=== PATIENT | male | born 1960 | race Caucasian/White ===

== ENCOUNTER 2016-11-27 12:03 | Emergency (ER) | payer OTHER ==
[2016-11-27 12:15] VITALS: BP 223/85; PULSE 83; RESP 20; TEMP 98.3
--- NOTE | 2016-11-27 13:58 | US ---
EXAMINATION TYPE: US venous doppler duplex LE LT DATE OF EXAM: 11/27/2016 1:30 PM COMPARISON: None CLINICAL HISTORY: 56-year-old male with pain. Left leg pain and swelling. Hx of multiple PE's- Last one x 3 months ago. Not on any blood thinners. SIDE PERFORMED: Left TECHNIQUE: The lower extremity deep venous system is examined utilizing real time linear array sonog jordana with graded compression, doppler sonography and color-flow sonography. FINDINGS: VESSELS IMAGED: External Iliac Vein (EIV) Common Femoral Vein Deep Femoral Vein Greater Saphenous Vein * Femoral Vein Popliteal Vein Small Saphenous Vein * Proximal Calf Veins (* superficial vessels) Left Leg: Appears negative for DVT IMPRESSION: No evidence for DVT within the left lower extremity imaged from the groin to the upper calf.
--- NOTE | 2016-11-27 14:38 | ED ---
General Adult HPI - General Chief complaint: Extremity Injury, Lower Stated complaint: Swollen Left Leg Source: patient Mode of arrival: wheelchair Limitations: no limitations - History of Present Illness Initial comments: 56-year-old male with past medical history of hypertension, degenerative disc disease, and gastric ulcer presenting for evaluation of left lower extremity edema, erythema, and pain. He states that the symptoms have been present for the last 3 days and have progressively been worsening. Initially the redness was much more intense but he states it slowly been coming off. The edema is worse on the left compared to right and he states that his leg feels swollen. Denies any injury to the leg. The right leg is at baseline. Denies any associated chest pain, shortness of breath, fever, chills, nausea, vomiting. - Related Data Home Medications Medication Instructions Recorded Confirmed Ibuprofen [Motrin] 1,000 - 1,200 mg PO Q6HR PRN 11/27/16 11/27/16 Lisinopril-Hctz 20-25 mg 1 tab PO DAILY 11/27/16 11/27/16 [Zestoretic 20-25] Naproxen 500 mg PO Q12HR 11/27/16 11/27/16 Ranitidine HCl [Zantac] 150 mg PO BID 11/27/16 11/27/16 traMADol HCL [Ultram] 50 mg PO TID PRN 11/27/16 11/27/16 Review of Systems ROS Statement: Those systems with pertinent positive or pertinent negative responses have been documented in the HPI. ROS Other: All systems not noted in ROS Statement are negative. Constitutional: Denies: fever, chills, weakness, weight change Eyes: Denies: eye pain, eye discharge, vision change ENT: Denies: ear pain, throat pain Respiratory: Denies: cough, dyspnea, wheezes, hemoptysis Cardiovascular: Reports: edema (left greater than the right (lower extremity)). Denies: chest pain, palpitations Endocrine: Denies: fatigue Gastrointestinal: Denies: abdominal pain, nausea, vomiting Genitourinary: Denies: urgency, frequency, hematuria Skin: Reports: change in color, other (erythema ot LLE). Denies: rash, lesions Neurological: Denies: headache, weakness Psychiatric: Denies: anxiety, depression Hematological/Lymphatic: Denies: easy bleeding, easy bruising Past Medical History Past Medical History: Hypertension Additional Past Medical History / Comment(s): djd, stomach ulcer History of Any Multi-Drug Resistant Organisms: None Reported Additional Past Surgical History / Comment(s): head Past Psychological History: No Psychological Hx Reported Smoking Status: Current every day smoker Past Alcohol Use History: Occasional Past Drug Use History: None Reported General Exam Limitations: no limitations General appearance: alert, in no apparent distress Head exam: Present: atraumatic, normocephalic, normal inspection Eye exam: Present: normal appearance, PERRL, EOMI. Absent: scleral icterus, conjunctival injection, periorbital swelling ENT exam: Present: normal exam, mucous membranes moist Neck exam: Present: normal inspection. Absent: tenderness, meningismus, lymphadenopathy Respiratory exam: Present: normal lung sounds bilaterally. Absent: respiratory distress, wheezes, rales, rhonchi, stridor Cardiovascular Exam: Present: regular rate, normal rhythm, normal heart sounds. Absent: systolic murmur, diastolic murmur, rubs, gallop, clicks GI/Abdominal exam: Present: soft, normal bowel sounds. Absent: distended, tenderness, guarding, rebound, rigid Rectal exam: Present: deferred Extremities exam: Present: normal inspection, full ROM, normal capillary refill. Absent: tenderness, pedal edema, joint swelling, calf tenderness Back exam: Present: normal inspection Neurological exam: Present: alert, oriented X3, CN II-XII intact Psychiatric exam: Present: normal affect, normal mood Skin exam: Present: warm, dry, intact, other (erythema to LLE without overlying warmth or well demarkated sevence.). Absent: rash Course Vital Signs 11/27/16 12:07 Temperature 98.3 F Pulse Rate 83 Respiratory 20 Rate Blood Pressure 223/85 O2 Sat by Pulse 97 Oximetry Medical Decision Making - Medical Decision Making 56-year-old male presenting for evaluation of left lower extremity swelling and erythema for the past few days. On physical exam there is swelling and erythema to the LLE distal to the knee. It is circumferential and goes two th[address] the way up to the knee. He denies any other associated symptoms of chest pain, shortness breath, fevers, chills, nausea, vomiting. There is a small lesion to the left anterolateral lower extremity that he states was initially there before all this began, likely indicating cellulitis. However there does not appear to be an opening in the skin at this location and concern for DVT is still present. Lower extremity duplex reveals no signs of DVT. However the patient became weary of waiting for results. He was informed that he would be updated on the status of the ultrasound as soon as it was completed. He stated this was taking too long and that he would want to leave. As appropriate papers were being put together to have the patient discharged the patient left without further treatment or evaluation and left without completion of services. Given that this is likely a cellulitis will print out a prescription for antibiotics and sent to the patient. Disposition Clinical Impression: Cellulitis and abscess of left leg Disposition: Left Against Medical Advice Condition: Stable Instructions: Cellulitis (ED) Referrals: Fritz Brizuela DO [Primary Care Provider] - 1-2 days Time of Disposition: 16:24
== END 2016-11-27 14:45 | disposition left against medical advice (07) ==
LOC: EC 12:03
DX: L03.116 Cellulitis of left lower limb (principal); I10 Essential (primary) hypertension; F17.200 Nicotine dependence, unspecified, uncomplicated; Z53.29 Procedure and treatment not carried out because of patient's decision for other reasons; Z79.899 Other long term (current) drug therapy
CPT/HCPCS: 99283

== ENCOUNTER → 2017-01-26 | Outpatient (CLI) | payer OTHER | END | disposition home or self-care (01) | LOC: LABPAT 11:18 | PROVIDERS: ATTEND Urology | DX: Z01.810 Encounter for preprocedural cardiovascular examination (principal); I10 Essential (primary) hypertension | CPT/HCPCS: 93005 ==

== ENCOUNTER 2017-01-29 12:53 | Day surgery (SDC) | payer OTHER ==
[2017-01-26 17:39] VITALS: BMI 44.3
[~2017-01-29 12:53] MED LIST: DEXAMETHASONE SOD PHOSPHATE 10 MG/ML 1 ML VIAL IV ONE; LACTATED RINGERS 1,000 ML IV SCH; ONDANSETRON 4 MG/2 ML VIAL IVP ONE; SCOPOLAMINE 1.5MG/72HR PATCH TRANSDERM ONE; ceFAZolin 2 GM in SODIUM CHLORIDE 0.9% 100 ML IVPB ONE; fentaNYL (PF) 50 MCG/ML 2 ML AMP IV PRN
--- NOTE | 2017-01-29 12:55 | XR ---
EXAMINATION TYPE: XR KUB DATE OF EXAM: 01/29/2017 HISTORY: Pain Comparison: March 15, 2010 Single KUB is submitted for interpretation. Findings: Right renal calculi: None Visualized. Right ureteral calculi: None Visualized. Left renal calculi: There is a calculus noted overlying the lower pole of the left kidney measuring 10.5 mm craniocaudal dimension by 5.7 mm transverse dimension. Left ureteral calculi: I cannot exclude a calcification overlying the left L4 transverse process yamilet suring 4.4 mm. Pelvic calcifications: None Visualized. Bowel gas pattern is unremarkable. No free air. No mass effects. IMPRESSION: 1. Left renal calculus is noted. 2. I cannot exclude the possibility of a calculus at the approximate the left L4 transverse process l evel.
[2017-01-29] MEDS ORDERED: LIDOCAINE 1% 20 ML VIAL (10MG/ML) FOR IV START INTRADERMA ONE (13:11)
[2017-01-29] MEDS: ONDANSETRON 4 MG/2 ML VIAL IVP ONE ×2 (13:15→18:07)
[2017-01-29] MEDS ORDERED: MIDAZOLAM 2 MG/2 ML VIAL ONE (14:14)
[2017-01-29] MEDS ORDERED: LIDOCAINE 1% INJ 10MG/ML (20 ML MDV) ONE (14:14)
[2017-01-29] MEDS ORDERED: KETOROLAC 30 MG/ML 1 ML VIAL ONE (14:14)
[2017-01-29] MEDS ORDERED: SUCCINYLCHOLINE CHLORIDE VIAL 200 MG/10 ML VIAL IV ONE (14:14)
[2017-01-29] MEDS ORDERED: fentaNYL (PF) 50 MCG/ML 2 ML AMP ONE (14:14)
[2017-01-29] MEDS ORDERED: PROPOFOL 10 MG/ML 20 ML VIAL IV ONE (14:14)
[2017-01-29] MEDS ORDERED: IOHEXOL 350 MG/ML 50ML BOTTLE MISCELLANE ONE (14:44)
[2017-01-29] MEDS ORDERED: LACTATED RINGERS 1,000 ML IV ONE ×2 (15:17→18:12)
--- NOTE | 2017-01-29 15:52 | P.OP ---
Date of Procedure: 01/29/17 Preoperative Diagnosis: Left Renal Calculus Postoperative Diagnosis: Same Procedure(s) Performed: Cystoscopy, bilateral retrograde pyelogram, right ureteroscopy, left ureteroscopy with Holmium laser lithotripsy, left ureteral stent insertion Implants: Anesthesia: HOMEROA Surgeon: Finn Yuen Estimated Blood Loss (ml): 10 IV fluids (ml): 900 Pathology: none sent Condition: stable Disposition: PACU Indications for Procedure: The patient is a 56-year-old white male recently hospitalized with a 5 mm left proximal ureteral calculus. The calculus was seen on computed tomography scan but not on a plain radiograph. He reports persistent pain and will thus loss undergo ureteroscopy with laser lithotripsy. Of interest, his pain is predominantly right-sided. Operative Findings: Left renal calculus, fragmented completely. There is no evidence of urolithiasis or obstruction on the right. Description of Procedure: The patient was taken to the operating room and placed in the dorsolithotomy position, with legs supported in Graham stirrups. The external genitalia was prepped and draped sterilely. The 30 lens was used to introduce the 19-St Lucian Stortz cystoscopic sheath through the urethra and into the bladder under direct vision. The prostatic urethra showed evidence of mild lateral lobe enlargement. The bladder was examined in its entirety. Both ureteral orifices were normal anatomic location and configuration, and clear urine effluxed from both. No tumors or foreign bodies were seen. Using an 8-St Lucian cone-tipped catheter, bilateral retrograde pyelograms were performed in the standard fashion. The course of each ureter appeared normal, without obstruction or filling defect. The renal pelvis on the left appeared normal. Some fullness of the right renal pelvis was noted, though after the system drained somewhat there was no evidence of right hydronephrosis. A 0.038 inch Glidewire was passed through the cystoscope. The left ureteral orifice was cannulated, and the Glidewire was advanced up to the left renal pelvis. An 11/13-St Lucian ureteral access catheter was passed over the wire, up to the proximal ureter. The Olympus mini flexible ureteroscope was passed through the ureteral access catheter sheath and up to the left renal pelvis. The calculus was identified within the renal pelvis. The 200 micron Holmium laser probe was passed through the ureteroscope, and lithotripsy was performed. Utilizing a dusting technique, the calculus was fragmented completely. Each calyx was examined, and no additional calculi were seen. The ureteroscope was slowly withdrawn under direct vision. There was no evidence of ureteral trauma. The cystoscope was again passed into the bladder, and the Glidewire was advanced up to the right renal pelvis. The cystoscope was removed, and the Olympus mini flexible ureteroscope was passed over the wire, up to the right renal pelvis. Each calyx was examined, and no calculi were seen within the right intrarenal collecting system. The ureteroscope was slowly withdrawn, and no ureteral abnormalities were noted. After removing the ureteroscope, the cystoscope was passed into the bladder under direct vision, and the Glidewire was advanced up to the left renal pelvis. A 26 cm, 4.8-St Lucian double-J ureteral stent was placed over the wire. Proper stent positioning was verified fluoroscopically and endoscopically. The bladder was emptied and the cystoscope removed. The patient tolerated the procedure well and was taken to the recovery room in stable condition.
--- NOTE | 2017-01-29 16:00 | FL ---
EXAMINATION TYPE: FL urography retrograde DATE OF EXAM: 01/29/2017 COMPARISON: NONE HISTORY: LEFT SIDE URETERAL STONES TECHNIQUE: Fluoroscopy. 2 MIN 33 SEC FLUORO IMPRESSION: As Above.
[2017-01-29] MEDS ORDERED: HYDROmorphone 1 MG/ML 1 ML SYRINGE IVP ONE ×4 (16:07→16:58)
[2017-01-29 16:10] VITALS: TEMP 97.2
[2017-01-29] MEDS ORDERED: hydrALAZINE HCL 20 MG/ML 1 ML VIAL IVP ONE ×2 (16:30→16:41)
[2017-01-29 17:08] VITALS: RESP 16
[2017-01-29] MEDS ORDERED: HYDROcodone/APAP 5-325MG 1 EACH TAB PO ONE (17:30)
[2017-01-29 18:55] VITALS: BP 190/98; PULSE 82
== END 2017-01-29 19:02 | disposition home or self-care (01) ==
LOC: OR 12:53
PROVIDERS: ATTEND Urology
DX: N13.2 Hydronephrosis with renal and ureteral calculous obstruction (principal); I10 Essential (primary) hypertension; E66.9 Obesity, unspecified; N19 Unspecified kidney failure; K21.9 Gastro-esophageal reflux disease without esophagitis; E78.5 Hyperlipidemia, unspecified; J45.909 Unspecified asthma, uncomplicated; Z79.891 Long term (current) use of opiate analgesic; Z79.899 Other long term (current) drug therapy; Z88.6 Allergy status to analgesic agent; F17.200 Nicotine dependence, unspecified, uncomplicated
CPT/HCPCS: 74000; 74420; 52356; C2625; C1758; C1769; J2250; J0330; J0360; J1100; J0690; J2405; J2001; J3010; J1885; J1170; J2704; Q9967

== ENCOUNTER 2017-01-29 22:18 | Emergency (ER) | payer OTHER ==
[2017-01-29] MEDS ORDERED: METOCLOPRAMIDE 5 MG/ML 2 ML VIAL IVP STA (22:46)
[2017-01-29] MEDS ORDERED: SODIUM CHLORIDE 0.9% 500 ML IV STA (22:46)
[2017-01-29] MEDS ORDERED: HYDROmorphone 1 MG/ML 1 ML SYRINGE IVP STA ×2 (22:47→23:56)
--- NOTE | 2017-01-29 22:49 | ED ---
General Adult HPI - General Chief complaint: Nausea/Vomiting/Diarrhea Stated complaint: vomiting post surgery Time Seen by Provider: 01/29/17 22:36 Source: patient, EMS, RN notes reviewed Mode of arrival: EMS Limitations: no limitations - History of Present Illness Initial comments: Patient is a pleasant 56-year-old male presenting to the emergency department with nausea vomiting. Patient did have laser breakup of kidney stone with stent placement done earlier today. Patient has been vomiting since that time. Patient believes vomiting is causing abdominal and chest discomfort. Patient does have dysuria and hematuria. Patient has been recently constipated. Patient has been sweaty. - Related Data Home Medications Medication Instructions Recorded Confirmed Ranitidine HCl [Zantac] 150 mg PO BID 11/27/16 01/29/17 Ondansetron [Zofran] 8 mg SL Q8HR PRN 01/26/17 01/29/17 Tamsulosin [Flomax] 0.4 mg PO HS 01/26/17 01/29/17 cloNIDine HCL [Catapres] 0.1 mg PO TID 01/26/17 01/29/17 Hydrocodone/Acetaminophen [Collison 1 - 2 tab PO Q4HR PRN 01/29/17 01/29/17 5-325] diphenhydrAMINE [Benadryl] 25 mg PO BID PRN 01/29/17 01/29/17 Allergies Allergy/AdvReac Type Severity Reaction Status Date / Time aspirin Allergy SEIZURE Verified 01/29/17 22:56 Review of Systems ROS Statement: Those systems with pertinent positive or pertinent negative responses have been documented in the HPI. ROS Other: All systems not noted in ROS Statement are negative. Constitutional: Denies: fever Eyes: Denies: eye pain ENT: Denies: ear pain Respiratory: Denies: cough Cardiovascular: Reports: chest pain Endocrine: Denies: fatigue Gastrointestinal: Reports: abdominal pain, nausea, vomiting Genitourinary: Reports: dysuria, hematuria Musculoskeletal: Denies: back pain Skin: Denies: rash Neurological: Denies: weakness Past Medical History Past Medical History: Hypertension Additional Past Medical History / Comment(s): djd, stomach ulcer, kidney stone. History of Any Multi-Drug Resistant Organisms: None Reported Additional Past Surgical History / Comment(s): head Past Psychological History: No Psychological Hx Reported Smoking Status: Current every day smoker General Exam Limitations: no limitations General appearance: alert, in no apparent distress Head exam: Present: atraumatic Eye exam: Present: normal appearance, PERRL ENT exam: Present: normal oropharynx Neck exam: Present: normal inspection Respiratory exam: Present: normal lung sounds bilaterally Cardiovascular Exam: Present: regular rate, normal rhythm Expanded Peripheral pulses: 2+: Dorsalis Pedis (R), Dorsalis Pedis (L) GI/Abdominal exam: Present: soft, tenderness (Moderate diffuse tenderness), normal bowel sounds. Absent: rigid exam: Present: normal inspection. Absent: testicular tenderness Extremities exam: Present: normal inspection Neurological exam: Present: alert Psychiatric exam: Present: normal affect, normal mood Skin exam: Absent: rash Course Vital Signs 01/29/17 01/30/17 22:21 00:33 Pulse Rate 84 82 Respiratory 20 16 Rate Blood Pressure 167/96 180/94 O2 Sat by Pulse 98 95 Oximetry EKG Findings - EKG Comments: EKG Findings:: Normal sinus rhythm at 75. LA 148. QRS 88. QT 400. QTc 446. Normal axis. Normal QRS. Normal ST-T. Medical Decision Making - Medical Decision Making Patient again reexamined and resting comfortably in bed. Patient states symptoms are mild and did not want any pain medication. Patient updated on results. Case was discussed in detail with Dr. Calderon, covering for Dr. Cespedes. He does recommend discharge and follow-up tomorrow. No need for antibiotic's at this time. - Lab Data Result diagrams: 01/29/17 22:50 01/29/17 22:50 Lab Results 01/29/17 01/29/17 01/29/17 Range/Units 22:50 22:50 22:50 WBC 18.7 H (3.8-10.6) k/uL RBC 4.65 (4.30-5.90) m/uL Hgb 15.7 (13.0-17.5) gm/dL Hct 47.1 (39.0-53.0) % MCV 101.3 H (80.0-100.0) fL MCH 33.7 (25.0-35.0) pg MCHC 33.3 (31.0-37.0) g/dL RDW 15.3 (11.5-15.5) % Plt Count 295 (150-450) k/uL Neutrophils % 89 % Lymphocytes % 4 % Monocytes % 5 % Eosinophils % 1 % Basophils % 0 % Neutrophils # 16.7 H (1.3-7.7) k/uL Lymphocytes # 0.8 L (1.0-4.8) k/uL Monocytes # 0.9 (0-1.0) k/uL Eosinophils # 0.2 (0-0.7) k/uL Basophils # 0.0 (0-0.2) k/uL Macrocytosis Slight Sodium 141 (137-145) mmol/L Potassium 4.0 (3.5-5.1) mmol/L Chloride 104 (98-107) mmol/L Carbon Dioxide 22 (22-30) mmol/L Anion Gap 15 mmol/L BUN 10 (9-20) mg/dL Creatinine 1.05 (0.66-1.25) mg/dL Est GFR (MDRD) Af Amer >60 (>60 ml/min/1.73 sqM) Est GFR (MDRD) Non-Af >60 (>60 ml/min/1.73 sqM) Glucose 166 H (74-99) mg/dL Calcium 9.0 (8.4-10.2) mg/dL Total Bilirubin 0.7 (0.2-1.3) mg/dL AST 66 H (17-59) U/L ALT 42 (21-72) U/L Alkaline Phosphatase 84 (38-126) U/L Total Creatine Kinase 66 (55-170) U/L CK-MB (CK-2) 1.3 (0.0-2.4) ng/mL CK-MB (CK-2) Rel Index 2.0 Troponin I <0.012 (0.000-0.034) ng/mL Total Protein 7.0 (6.3-8.2) g/dL Albumin 4.2 (3.5-5.0) g/dL Amylase 37 (30-110) U/L Lipase 42 (23-300) U/L Urine Color Urine Appearance (Clear) Urine pH (5.0-8.0) Ur Specific [place] (1.001-1.035) Urine Protein (Negative) Urine Glucose (UA) (Negative) Urine Ketones (Negative) Urine Blood (Negative) Urine Nitrite (Negative) Urine Bilirubin (Negative) Urine Urobilinogen (<2.0) mg/dL Ur Leukocyte Esterase (Negative) Urine RBC (0-5) /hpf Urine WBC (0-5) /hpf 01/29/17 Range/Units 23:00 WBC (3.8-10.6) k/uL RBC (4.30-5.90) m/uL Hgb (13.0-17.5) gm/dL Hct (39.0-53.0) % MCV (80.0-100.0) fL MCH (25.0-35.0) pg MCHC (31.0-37.0) g/dL RDW (11.5-15.5) % Plt Count (150-450) k/uL Neutrophils % % Lymphocytes % % Monocytes % % Eosinophils % % Basophils % % Neutrophils # (1.3-7.7) k/uL Lymphocytes # (1.0-4.8) k/uL Monocytes # (0-1.0) k/uL Eosinophils # (0-0.7) k/uL Basophils # (0-0.2) k/uL Macrocytosis Sodium (137-145) mmol/L Potassium (3.5-5.1) mmol/L Chloride (98-107) mmol/L Carbon Dioxide (22-30) mmol/L Anion Gap mmol/L BUN (9-20) mg/dL Creatinine (0.66-1.25) mg/dL Est GFR (MDRD) Af Amer (>60 ml/min/1.73 sqM) Est GFR (MDRD) Non-Af (>60 ml/min/1.73 sqM) Glucose (74-99) mg/dL Calcium (8.4-10.2) mg/dL Total Bilirubin (0.2-1.3) mg/dL AST (17-59) U/L ALT (21-72) U/L Alkaline Phosphatase (38-126) U/L Total Creatine Kinase (55-170) U/L CK-MB (CK-2) (0.0-2.4) ng/mL CK-MB (CK-2) Rel Index Troponin I (0.000-0.034) ng/mL Total Protein (6.3-8.2) g/dL Albumin (3.5-5.0) g/dL Amylase (30-110) U/L Lipase (23-300) U/L Urine Color Dark Red Urine Appearance Cloudy (Clear) Urine pH 7.5 (5.0-8.0) Ur Specific [place] 1.015 (1.001-1.035) Urine Protein 2+ H (Negative) Urine Glucose (UA) 2+ H (Negative) Urine Ketones Trace H (Negative) Urine Blood Large H (Negative) Urine Nitrite Negative (Negative) Urine Bilirubin Negative (Negative) Urine Urobilinogen <2.0 (<2.0) mg/dL Ur Leukocyte Esterase Small H (Negative) Urine RBC >182 H (0-5) /hpf Urine WBC >182 H (0-5) /hpf - Radiology Data Radiology results: image reviewed (Chest x-ray shows questionable mild congestion. KUB shows left ureteral stent.) Disposition Clinical Impression: Vomiting, Abdominal pain, Chest pain Disposition: HOME SELF-CARE Condition: Stable Instructions: Abdominal Pain (ED), Acute Nausea and Vomiting (ED) Additional Instructions: Please call Dr. Cespedes in the morning for further evaluation and plan. Please also follow-up Dr. Reynolds in the next day or 2. Return for chest pain , increased pain, fevers, uncontrolled vomiting, worsening symptoms or any other concerns. Referrals: Endy Reynolds MD [Primary Care Provider] - 1-2 days Finn Yuen MD [STAFF PHYSICIAN] - 1-2 days Time of Disposition: 01:05
[2017-01-29 23:03] LABS: Basophils % (A) 0 %; CH 34.5; CHCM 34.2; Eosinophils # (A) 0.2 k/uL (0-0.7); Eosinophils % (A) 1 %; HCT 47.1 % (39.0-53.0); HGB 15.7 gm/dL (13.0-17.5); Luc # (Auto) 0.15; Luc % (Auto) 1; Lymphocytes # (A) 0.8 k/uL (1.0-4.8); Lymphocytes % (A) 4 %; MCH 33.7 pg (25.0-35.0); MCHC 33.3 g/dL (31.0-37.0); MCV 101.3 fL (80.0-100.0); Macrocytosis Slight; Mean Platelet Volume 7.6; Monocytes # (A) 0.9 k/uL (0-1.0); Monocytes % (A) 5 %; Neutrophils # (A) 16.7 k/uL (1.3-7.7); Neutrophils % (A) 89 %; RBC 4.65 m/uL (4.30-5.90); RDW 15.3 % (11.5-15.5); WBC 18.7 k/uL (3.8-10.6); WBC (Perox) 17.45
[2017-01-29 23:13] LABS: ALT 42 U/L (21-72); AST 66 U/L (17-59); Alkaline Phosphatase 84 U/L (38-126); Amylase 37 U/L (30-110); Anion Gap 15 mmol/L; Blood Urea Nitrogen 10 mg/dL (9-20); Carbon Dioxide 22 mmol/L (22-30); Chloride 104 mmol/L (98-107); Glucose 166 mg/dL (74-99); Non-African American GFR(MDRD) >60 (>60 ml/min/1.73 sqM); Sodium 141 mmol/L (137-145); Total Bilirubin 0.7 mg/dL (0.2-1.3)
[2017-01-29 23:23] LABS: Creatine Kinase 66 U/L (55-170)
[2017-01-29 23:36] LABS: Creatine Kinase MB 1.3 ng/mL (0.0-2.4); Troponin I <0.012 ng/mL (0.000-0.034)
[2017-01-29] MEDS ORDERED: ONDANSETRON 4 MG/2 ML VIAL IVP STA (23:56)
--- NOTE | 2017-01-29 23:58 | XR ---
Exam: XR CXR 2 VIEWS History: Pain. Comparison: None provided. Technique: 2 views. Findings: No focal consolidation or significant effusion. The heart shadow is top normal in transverse dimension. There is mild prominence of pulmonary vasculature. This may be accentuated by technique. Represent mild volume overload. Impression: Question mild pulmonary overload/congestion. No definite focal consolidation or significant effusion.
--- NOTE | 2017-01-30 00:02 | XR ---
Exam: XR KUB History: Vomiting and pain after lithotripsy stent placement. Comparison: 01/29/17 at 12:32. Technique: 2 views. Findings: Previously noted left renal calculus is not appreciated on the current examination. Left nephroureteral stent. There is density in the right renal collecting system which suggests moderate right hydronephrosis. Contrast material is seen in the urinary bladder. There are a few prominent gas-filled loops of bowel without rajani dilatation. May represent minimal ileus. Impression: Left nephroureteral stent as noted above.
[2017-01-30 00:03] LABS: Appearance,Urine Cloudy (Clear); Bilirubin,Urine Negative (Negative); Glucose,Urine (UA) 2+ (Negative); Ketones,Urine Trace (Negative); Leukocyte Esterase,Urine Small (Negative); Nitrite,Urine Negative (Negative); PH, Urine 7.5 (5.0-8.0); Particle Count 4803; Protein,Urine 2+ (Negative); RBC,Urine >182 /hpf (0-5); Specific Gravity,Urine 1.015 (1.001-1.035); UA Billing (MACRO vs. MICRO) MICRO; Urobilinogen,Urine <2.0 mg/dL (<2.0); WBC,Urine >182 /hpf (0-5)
[2017-01-30 00:40] VITALS: BP 180/94; PULSE 82; RESP 16
[2017-01-30] MEDS ORDERED: HYDROcodone/APAP 5-325MG 1 EACH TAB PO STA (01:07)
== END 2017-01-30 01:34 | disposition home or self-care (01) ==
LOC: EC 22:18
DX: R11.2 Nausea with vomiting, unspecified (principal); R10.9 Unspecified abdominal pain; R07.9 Chest pain, unspecified; R30.0 Dysuria; R31.9 Hematuria, unspecified; K59.00 Constipation, unspecified; I10 Essential (primary) hypertension; F17.200 Nicotine dependence, unspecified, uncomplicated; Z87.442 Personal history of urinary calculi; Z87.19 Personal history of other diseases of the digestive system; Z79.899 Other long term (current) drug therapy; Z88.6 Allergy status to analgesic agent; Z96.0 Presence of urogenital implants
CPT/HCPCS: 99285; 96374; 96375 ×2; 96361 ×3; 36415; 93005; 80053; 82150; 82550; 82553; 83690; 84484; 85025; 81001; 71020; 74000; J2765; J2405; J1170

== ENCOUNTER 2017-02-27 09:57 | Inpatient (IN) | payer OTHER ==
[2017-02-27] MEDS ORDERED: hydrALAZINE HCL 20 MG/ML 1 ML VIAL IVP STA (11:00)
[2017-02-27 11:41] LABS: Basophils % (A) 0 %; CH 34.7; CHCM 34.9; Eosinophils # (A) 0.1 k/uL (0-0.7); Eosinophils % (A) 1 %; HCT 49.2 % (39.0-53.0); HDW 2.51; HGB 16.9 gm/dL (13.0-17.5); Luc # (Auto) 0.17; Luc % (Auto) 1; Lymphocytes # (A) 1.5 k/uL (1.0-4.8); Lymphocytes % (A) 12 %; MCH 34.3 pg (25.0-35.0); MCHC 34.4 g/dL (31.0-37.0); MCV 99.8 fL (80.0-100.0); Mean Platelet Volume 7.7; Monocytes # (A) 0.9 k/uL (0-1.0); Monocytes % (A) 7 %; Neutrophils # (A) 10.1 k/uL (1.3-7.7); Neutrophils % (A) 79 %; RBC 4.93 m/uL (4.30-5.90); RDW 13.9 % (11.5-15.5); WBC 12.8 k/uL (3.8-10.6); WBC (Perox) 12.81
[2017-02-27 11:51] LABS: ALT 50 U/L (21-72); AST 41 U/L (17-59); Alkaline Phosphatase 88 U/L (38-126); Anion Gap 15 mmol/L; Blood Urea Nitrogen 14 mg/dL (9-20); Calcium 9.7 mg/dL (8.4-10.2); Carbon Dioxide 26 mmol/L (22-30); Chloride 102 mmol/L (98-107); Glucose 114 mg/dL (74-99); Non-African American GFR(MDRD) >60 (>60 ml/min/1.73 sqM); Potassium 3.5 mmol/L (3.5-5.1); Sodium 143 mmol/L (137-145); Total Bilirubin 0.9 mg/dL (0.2-1.3); Total Protein 7.2 g/dL (6.3-8.2)
--- NOTE | 2017-02-27 11:58 | XR ---
2 view abdomen HISTORY: Abdominal pain, left-sided kidney stone with stent 2 views of the abdomen on 4 images are correlated to prior abdomen 01/29/2017 Left double-J ureteral stent is in place. Contrast is no longer present within the bladder and right collecting system. Renal calcification is not identified with certainty. Exam may be limited by body habitus. There are air-filled loops of small bowel without bowel distention. No evident pneumoperiton eum. Lung bases are clear. IMPRESSION: There may be an underlying ileus. Double-J left ureteral stent remains in place.
[2017-02-27] MEDS: ONDANSETRON 4 MG/2 ML VIAL IVP PRN ×2 (12:30→18:32)
[2017-02-27] MEDS: HYDROmorphone 1 MG/ML 1 ML SYRINGE IVP PRN ×4 (12:31→21:25)
[2017-02-27] MEDS: FAMOTIDINE 20 MG/2 ML VIAL IV SCH ×2 (12:31→20:20)
[2017-02-27] MEDS: SODIUM CHLORIDE 0.9% 1,000 ML IV SCH ×2 (12:32→23:41)
[2017-02-27 13:30] LABS: Appearance,Urine Cloudy (Clear); Bacteria,Urine Rare /hpf; Bilirubin,Urine 1+ (Negative); Glucose,Urine (UA) Trace (Negative); Ketones,Urine 2+ (Negative); Leukocyte Esterase,Urine Large (Negative); Mucus,Urine Many /hpf; Nitrite,Urine Negative (Negative); Particle Count 12955; Protein,Urine 2+ (Negative); RBC,Urine >182 /hpf (0-5); Squamous Epithelial Cell,Urine 2 /hpf (0-4); UA Billing (MACRO vs. MICRO) MICRO; WBC,Urine 63 /hpf (0-5)
--- NOTE | 2017-02-27 17:52 | P.GSCN ---
History of Present Illness Consult date: 02/27/17 Reason for Consult: Kidney Stone Requesting physician: Endy Reynolds History of present illness: The patient is a 56-year-old white male hospitalized at [facility] last month with abdominal pain, which was predominantly right-sided. He scan showed a 5 mm left proximal ureteral calculus. He experienced persistent pain, and thus underwent left ureteroscopy with laser lithotripsy on 2016. At that time, the calculus was noted to have refluxed back into the kidney. The calculus was fragmented completely, and a ureteral stent was left in place. Right ureteroscopy was also performed, showing no evidence of urolithiasis on that side. He noticed an appointment in the office to undergo removal of his stent. He is now admitted with diffuse lower abdominal pain and "testicular swelling". Review of Systems - Constitutional Denies fever - Gastrointestinal Reports abdominal pain - Genitourinary Reports hematuria Past Medical History Past Medical History: Hypertension Additional Past Medical History / Comment(s): djd, stomach ulcer, kidney stone. urinary stent hiatal herina History of Any Multi-Drug Resistant Organisms: None Reported Additional Past Surgical History / Comment(s): head. Ankle sx Past Psychological History: No Psychological Hx Reported Smoking Status: Current every day smoker Past Alcohol Use History: Occasional Past Drug Use History: None Reported Medications and Allergies Home Medications Medication Instructions Recorded Confirmed Type Ranitidine HCl [Zantac] 150 mg PO BID 11/27/16 02/27/17 History Ondansetron [Zofran] 8 mg SL Q8HR PRN 01/26/17 02/27/17 History Tamsulosin [Flomax] 0.4 mg PO HS 01/26/17 02/27/17 History cloNIDine HCL [Catapres] 0.1 mg PO TID 01/26/17 02/27/17 History Hydrocodone/Acetaminophen [[place] 1 tab PO Q4HR PRN 01/29/17 02/27/17 History 5-325] diphenhydrAMINE [Benadryl] 25 mg PO BID PRN 01/29/17 02/27/17 History Docusate 250mg 250 mg PO BID 02/27/17 02/27/17 History Polyethylene Glycol 3350 [Miralax] 17 gm PO DAILY PRN 02/27/17 02/27/17 History Allergies Allergy/AdvReac Type Severity Reaction Status Date / Time aspirin Allergy SEIZURE Verified 02/27/17 10:35 Surgical - Exam Vital Signs Temp Pulse Resp BP Pulse Ox 97.4 F L 88 18 169/115 99 02/27/17 10:39 02/27/17 10:39 02/27/17 10:39 02/27/17 10:39 02/27/17 10:39 - General well developed, well nourished, no distress - Respiratory normal respiratory effort - Abdomen Abdomen: soft, tender (mild lower abdominal tenderness to palpation), no guarding, no rigid, no rebound, no distended - Genitourinary normal penis with no external lesions, testicles non-tender - Psychiatric oriented to time, oriented to person, oriented to place, speech is normal, memory intact Results - Labs 02/27/17 11:17 02/27/17 11:17 Abnormal Lab Results - Last 24 Hours (Table) 02/27/17 02/27/17 02/27/17 Range/Units 11:17 11:17 12:20 WBC 12.8 H (3.8-10.6) k/uL Neutrophils # 10.1 H (1.3-7.7) k/uL Glucose 114 H (74-99) mg/dL Urine Protein 2+ H (Negative) Urine Glucose (UA) Trace H (Negative) Urine Ketones 2+ H (Negative) Urine Blood Large H (Negative) Urine Bilirubin 1+ H (Negative) Ur Leukocyte Esterase Large H (Negative) Urine RBC >182 H (0-5) /hpf Urine WBC 63 H (0-5) /hpf Urine Bacteria Rare H (None) /hpf Urine Mucus Many H (None) /hpf Microbiology - Last 24 Hours (Table) 02/27/17 12:20 Urine Culture - Preliminary Urine,Clean Catch Diabetes panel 02/27/17 Range/Units 11:17 Sodium 143 (137-145) mmol/L Potassium 3.5 (3.5-5.1) mmol/L Chloride 102 (98-107) mmol/L Carbon Dioxide 26 (22-30) mmol/L BUN 14 (9-20) mg/dL Creatinine 0.76 (0.66-1.25) mg/dL Glucose 114 H (74-99) mg/dL Calcium 9.7 (8.4-10.2) mg/dL AST 41 (17-59) U/L ALT 50 (21-72) U/L Alkaline Phosphatase 88 (38-126) U/L Total Protein 7.2 (6.3-8.2) g/dL Albumin 4.4 (3.5-5.0) g/dL Calcium panel 02/27/17 Range/Units 11:17 Calcium 9.7 (8.4-10.2) mg/dL Albumin 4.4 (3.5-5.0) g/dL Pituitary panel 02/27/17 Range/Units 11:17 Sodium 143 (137-145) mmol/L Potassium 3.5 (3.5-5.1) mmol/L Chloride 102 (98-107) mmol/L Carbon Dioxide 26 (22-30) mmol/L BUN 14 (9-20) mg/dL Creatinine 0.76 (0.66-1.25) mg/dL Glucose 114 H (74-99) mg/dL Calcium 9.7 (8.4-10.2) mg/dL Adrenal panel 02/27/17 Range/Units 11:17 Sodium 143 (137-145) mmol/L Potassium 3.5 (3.5-5.1) mmol/L Chloride 102 (98-107) mmol/L Carbon Dioxide 26 (22-30) mmol/L BUN 14 (9-20) mg/dL Creatinine 0.76 (0.66-1.25) mg/dL Glucose 114 H (74-99) mg/dL Calcium 9.7 (8.4-10.2) mg/dL Total Bilirubin 0.9 (0.2-1.3) mg/dL AST 41 (17-59) U/L ALT 50 (21-72) U/L Alkaline Phosphatase 88 (38-126) U/L Total Protein 7.2 (6.3-8.2) g/dL Albumin 4.4 (3.5-5.0) g/dL Assessment and Plan (1) Renal calculus Status: Acute Plan: Mr. Holden is admitted with lower abdominal pain" and scrotal swelling". On examination, the testes are palpably normal. The lower abdominal tenderness may be related to his stent, though this cannot be confirmed with certainty. Urinalysis is suggestive of possible infection, though this can be seen in the presence of a ureteral stent. He is scheduled to undergo removal of the stent in the office on 03/02/2017. A urine culture is pending. In the meantime, I have prescribed Levaquin. Given that his pain was predominantly right sided upon presentation, and has persisted despite successful removal of his ureteral calculus, I suspect a non-urologic etiology of his symptoms. Time with Patient: Less than 30
[2017-02-27] MEDS: LEVOFLOXACIN 500MG-D5W PMX 500 MG in DEXTROSE/WATER 1 100ML.BAG IVPB SCH (18:32)
[2017-02-27] MEDS: HEPARIN SODIUM,PORCINE 5,000 UNIT/ML 1 ML VIAL SQ SCH (20:20)
[2017-02-28] MEDS: HYDROmorphone 1 MG/ML 1 ML SYRINGE IVP PRN ×6 (01:34→22:22)
[2017-02-28] MEDS: ONDANSETRON 4 MG/2 ML VIAL IVP PRN ×3 (01:35→15:10)
[2017-02-28] MEDS: SODIUM CHLORIDE 0.9% 1,000 ML IV SCH ×2 (05:34→15:10)
[2017-02-28] MEDS: FAMOTIDINE 20 MG/2 ML VIAL IV SCH ×2 (08:09→20:06)
[2017-02-28] MEDS: HEPARIN SODIUM,PORCINE 5,000 UNIT/ML 1 ML VIAL SQ SCH ×2 (08:09→20:05)
--- NOTE | 2017-02-28 09:21 | HP ---
CHIEF COMPLAINT: A 56-year-old white male who presents with abdominal pain, significant right-sided severe pain and large amounts of hematuria, status post left ureteroscopy with left laser lithotripsy on 01/29/2017. He has been having severe nausea and vomiting, unable to keep any food down at which time he was admitted to the hospital due to significant abdominal pain, unable to take care of his pain, 10 out of 10 pain. Testicular swelling along with gross hematuria. Fourteen point review of systems negative for as mentioned in the HPI. PAST MEDICAL HISTORY: Hypertension, DJD, stomach ulcer, kidney stone, urinary stent, hiatal hernia. MEDICATIONS: 1. Flomax. 2. Zofran. 3. Zantac. 4. Catapres. 5. [place]. 6. Benadryl. 7. Colace. 8. MiraLAX. ALLERGIES: ASPIRIN. VITAL SIGNS: Blood pressure is 160s over 100s. O2 of 99% on room. Respiratory rate is 16 to 18. Pulse 80s to 90s. BMI is over 40. ABDOMEN: Tender to palpation diffuse in the lower quadrants. Mild guarding right lower quadrant. RESPIRATORY: Clear. CARDIOVASCULAR: S1 and S2. PSYCH: Anxious, nervous, rapid heart, rapid speech. VASCULAR: Normal dorsalis pedis, posterior tibial. White count is 12.8. Hemoglobin is 16.9. Sodium 143, potassium 3.5. ASSESSMENT: 1. Acute abdominal pain, secondary to possible ureteral obstruction. Consult Dr. Yuen. 2. Significant abdominal pain with nausea, vomiting and dehydration. ( ) IV fluids, IV nausea, IV pain medicine. Please see further orders. Consult with Dr. Yuen. [facility]
--- NOTE | 2017-02-28 10:40 | CT ---
EXAMINATION TYPE: CT abdomen pelvis wo con DATE OF EXAM: 02/28/2017 COMPARISON: 06/27/2009 HISTORY: Lt flank pain CT DLP: 1489.5 mGycm Automated exposure control for dose reduction was used. TECHNIQUE: Helical acquisition of images was performed from the lung bases through the pelvis. FINDINGS: Lung bases are clear of consolidation. There is no pleural effusion. Heart size is normal. Liver shows no focal defect. Spleen and pancreas appear normal. Gallbladder appears normal. Bile duct s are not dilated. There is no adrenal mass. There is a left-sided ureteral stent that appears in good position in the l eft renal pelvis. There is mild ectasia of the left and right renal pelvis. There is no sign of a iram al mass. I see no renal calculus. There is a 1 cm cortical cyst on the anterior right kidney. There i s no retroperitoneal adenopathy. There is no ascites. Urinary bladder appears normal. I see no intest inal wall thickening. There are no dilated loops. Appendix appears normal. I see no bony destructive process. Lumbar spine is intact. There is mild atheromatous change in the abdominal aorta. IMPRESSION : NORMAL APPENDIX. LEFT URETERAL STENT IS IN GOOD POSITION. MILD FULLNESS OF THE RENAL COLLECTING SYSTE MS THAT ARE INCREASED SLIGHTLY COMPARED TO OLD EXAM ON THE LEFT SIDE AND UNCHANGED ON THE RIGHT SIDE. STABLE RIGHT RENAL CORTICAL CYST. NO RENAL ATROPHY.
[2017-02-28] MEDS: hydrALAZINE HCL 20 MG/ML 1 ML VIAL IVP PRN ×2 (11:08→15:16)
--- NOTE | 2017-02-28 11:32 | DS ---
ADMITTED ON: 02/27/2017 DISCHARGED ON: 02/28/2017 DISCHARGE MEDICATIONS: 1. Zantac 150 mg b.i.d. 2. Catapres 0.1 t.i.d. 3. Flomax 0.4 mg q.h.s. 4. [place] 5/325 p.r.n. for pain. 5. Colace 250 b.i.d. 6. MiraLAX 17 gram p.o. p.r.n. 7. Cipro 500 b.i.d. for a week. 8. ( ) 1 b.i.d. for a week. CONDITION: Stable. PROGNOSIS: Guarded. DISCHARGE DIAGNOSES: 1. Acute abdominal pain. 2. Urinary tract infection. 3. Systemic inflammatory response syndrome. 4. Dehydration secondary to nausea and vomiting. 5. History of obesity. 6. Nicotine addition. 7. Ureteral stones. 8. Hematuria. 9. Acute renal colic. Follow up in the office in a week. HOSPITAL COURSE OF EVENTS: A white male who came in with acute ureteral colic, right lower quadrant abdominal pain. Seen by Urology. Diagnosed with UTI, was started on antibiotics which scripts are written. He also had a CAT scan of his abdomen and pelvis to make sure there is nothing seriously wrong, which showed no significant findings at which time patient was stabilized. He was sent home in stable condition to follow up as an outpatient. ABRAHAN
--- NOTE | 2017-02-28 16:27 | P.CONS ---
History of Present Illness - Reason for Consult Consult date: 02/28/17 Abdominal pain - History of Present Illness The patient is a 56-year-old white male who was admitted to the hospital with abdominal pain and scrotal swelling. He was hospitalized at [facility] last month with abdominal pain, which was predominantly right-sided. CT scan showed a 5 mm left proximal ureteral calculus. He experienced persistent pain, and thus underwent left ureteroscopy with laser lithotripsy on 2016. At that time, the calculus was noted to have refluxed back into the kidney. The calculus was fragmented completely, and a ureteral stent was left in place. Right ureteroscopy was also performed, showing no evidence of urolithiasis on that side. He has an appointment in the office 03/02/2017 to undergo removal of his stent. His urinalysis was suggestive of possible infection, urine culture is pending. He was Levaquin by urology. Given that his pain was predominantly right sided upon presentation, and has persisted despite successful removal of his ureteral calculus, urology suspected a non-urologic etiology of his symptoms. The patient has not been eating well and has harder time with BM. Last colonoscopy around [address] of abdomen today not revealing. Has one episode of vomiting today shortly after eating. Review of Systems 12-point ROS is, otherwise, not revealing except as per PI. Past Medical History Past Medical History: Hypertension Additional Past Medical History / Comment(s): djd, stomach ulcer, kidney stone. urinary stent hiatal herina History of Any Multi-Drug Resistant Organisms: None Reported Additional Past Surgical History / Comment(s): head. Ankle sx Past Psychological History: No Psychological Hx Reported Smoking Status: Current every day smoker Past Alcohol Use History: Occasional Past Drug Use History: None Reported Medications and Allergies Home Medications Medication Instructions Recorded Confirmed Type Ranitidine HCl [Zantac] 150 mg PO BID 11/27/16 02/27/17 History Ondansetron [Zofran] 8 mg SL Q8HR PRN 01/26/17 02/27/17 History Tamsulosin [Flomax] 0.4 mg PO HS 01/26/17 02/27/17 History cloNIDine HCL [Catapres] 0.1 mg PO TID 01/26/17 02/27/17 History Hydrocodone/Acetaminophen [[place] 1 tab PO Q4HR PRN 01/29/17 02/27/17 History 5-325] diphenhydrAMINE [Benadryl] 25 mg PO BID PRN 01/29/17 02/27/17 History Docusate 250mg 250 mg PO BID 02/27/17 02/27/17 History Polyethylene Glycol 3350 [Miralax] 17 gm PO DAILY PRN 02/27/17 02/27/17 History Allergies Allergy/AdvReac Type Severity Reaction Status Date / Time aspirin Allergy SEIZURE Verified 02/27/17 10:35 Physical Exam Vitals: Vital Signs Temp Pulse Resp BP Pulse Ox 02/28/17 15:00 98.1 F 89 20 179/101 93 L 02/28/17 07:00 96.9 F L 77 20 179/88 95 02/27/17 23:00 97.3 F L 80 19 134/82 95 Intake and Output 02/28/17 02/28/17 02/28/17 06:59 14:59 22:59 Other: Voiding Method Toilet # Voids 1 2 General: Appeared stated age, very pleasant in no acute distress. Head and neck: Normocephalic and atraumatic, conjunctivae pink and sclerae not icteric. Mucous membranes moist and pink. No masses in the neck orotracheal shifts. Lungs: Clear to auscultation with no dullness to percussion. Heart: Regular, no abnormal sounds, no murmurs, gallops or friction rubs Abdomen: Soft with no masses or organomegalies or tenderness. Voluntary guarding lower abdomen, no peritoneal signsBowel sounds present Extremities: No clubbing, cyanosis or edema Neurologic: Alert and oriented 3. Cranial nerves grossly intact. No gross sensory or motor abnormalities. Results CBC & Chem 7: 02/27/17 11:17 02/27/17 11:17 Labs: Microbiology - Last 24 Hours (Table) 02/27/17 12:20 Urine Culture - Final Urine,Clean Catch Assessment and Plan Plan: Abdominal pains could be related to GI or causes including UTI/ureteral stent. Agree with current plans. Did not suggest specific GI workup at this time and will keep that as a contingency if he continues to have issues despite treating his UTI and removing his stent. EGD and repeat colonoscopy could be considered as outpatient based on his course. I will discuss with you.
[2017-02-28] MEDS: LEVOFLOXACIN 500MG-D5W PMX 500 MG in DEXTROSE/WATER 1 100ML.BAG IVPB SCH (16:54)
[2017-02-28] MEDS: cloNIDine HCL 0.1 MG TAB PO SCH ×2 (16:55→22:23)
[2017-02-28] MEDS ORDERED: TAMSULOSIN 0.4 MG CAP.ER.24H PO SCH (21:00)
[2017-03-01] MEDS: HYDROmorphone 1 MG/ML 1 ML SYRINGE IVP PRN ×3 (02:29→09:32)
[2017-03-01] MEDS: SODIUM CHLORIDE 0.9% 1,000 ML IV SCH (05:32)
[2017-03-01 07:55] VITALS: BP 129/53; PULSE 80; RESP 20; TEMP 98
[2017-03-01] MEDS: FAMOTIDINE 20 MG/2 ML VIAL IV SCH (08:18)
[2017-03-01] MEDS: ONDANSETRON 4 MG/2 ML VIAL IVP PRN (08:18)
[2017-03-01] MEDS: HEPARIN SODIUM,PORCINE 5,000 UNIT/ML 1 ML VIAL SQ SCH (08:18)
[2017-03-01] MEDS: cloNIDine HCL 0.1 MG TAB PO SCH (08:18)
== END 2017-03-01 10:44 | disposition home or self-care (01) | DRG 694 ==
LOC: 4MS4W 10:11
PROVIDERS: ADMIT Family Medicine; ATTEND Family Medicine
DX: N20.2 Calculus of kidney with calculus of ureter (principal); N39.0 Urinary tract infection, site not specified; I10 Essential (primary) hypertension; E86.0 Dehydration; F17.200 Nicotine dependence, unspecified, uncomplicated; K44.9 Diaphragmatic hernia without obstruction or gangrene; M19.90 Unspecified osteoarthritis, unspecified site; N50.89 Other specified disorders of the male genital organs; Z87.442 Personal history of urinary calculi; Z79.899 Other long term (current) drug therapy; Z88.6 Allergy status to analgesic agent
CPT/HCPCS: 74020; 74176; 80053; 81001; 85025; 87086

== ENCOUNTER 2017-03-30 11:58 | Emergency (ER) | payer OTHER ==
[2017-03-30] MEDS ORDERED: SODIUM CHLORIDE 0.9% 1,000 ML IV STA (12:20)
[2017-03-30] MEDS ORDERED: ONDANSETRON 4 MG/2 ML VIAL IVP STA ×2 (12:20→14:51)
[2017-03-30] MEDS ORDERED: KETOROLAC 30 MG/ML 1 ML VIAL IVP STA (12:21)
[2017-03-30] MEDS ORDERED: LISINOPRIL-HCTZ 20-25 MG 1 EACH TAB PO STA (12:22)
[2017-03-30] MEDS ORDERED: hydrALAZINE HCL 20 MG/ML 1 ML VIAL IVP STA ×2 (12:22→14:52)
[2017-03-30 12:54] LABS: Basophils % (A) 0 %; CH 34.2; CHCM 34.8; Eosinophils # (A) 0.2 k/uL (0-0.7); Eosinophils % (A) 2 %; HCT 45.4 % (39.0-53.0); HDW 2.51; HGB 15.5 gm/dL (13.0-17.5); Luc # (Auto) 0.16; Luc % (Auto) 1; Lymphocytes # (A) 2.1 k/uL (1.0-4.8); Lymphocytes % (A) 17 %; MCH 33.6 pg (25.0-35.0); MCHC 34.1 g/dL (31.0-37.0); MCV 98.6 fL (80.0-100.0); Mean Platelet Volume 7.5; Monocytes # (A) 0.9 k/uL (0-1.0); Monocytes % (A) 8 %; Neutrophils # (A) 8.7 k/uL (1.3-7.7); Neutrophils % (A) 71 %; RBC 4.61 m/uL (4.30-5.90); RDW 13.8 % (11.5-15.5); WBC 12.2 k/uL (3.8-10.6); WBC (Perox) 11.86
[2017-03-30 12:59] LABS: Prothrombin Time 10.4 sec (9.0-12.0)
[2017-03-30 13:05] LABS: ALT 46 U/L (21-72); AST 30 U/L (17-59); Alkaline Phosphatase 127 U/L (38-126); Anion Gap 10 mmol/L; Blood Urea Nitrogen 16 mg/dL (9-20); Calcium 9.4 mg/dL (8.4-10.2); Carbon Dioxide 22 mmol/L (22-30); Chloride 110 mmol/L (98-107); Glucose 90 mg/dL (74-99); Non-African American GFR(MDRD) >60 (>60 ml/min/1.73 sqM); Potassium 4.5 mmol/L (3.5-5.1); Sodium 142 mmol/L (137-145); Total Bilirubin 0.5 mg/dL (0.2-1.3); Total Protein 7.2 g/dL (6.3-8.2)
--- NOTE | 2017-03-30 13:14 | ED ---
General Adult HPI - General Chief complaint: Dizziness Stated complaint: Hypertension Time Seen by Provider: 03/30/17 12:13 Source: patient, family Mode of arrival: EMS Limitations: no limitations - History of Present Illness Initial comments: This 56-year-old white male presents with a complaint of high blood pressure and feeling dizzy. He states that he was in the office to see Dr. Spain for pain management issues when he was sent to the emergency department because of his high blood pressure. His systolic was well over 200. He apparently was diaphoretic in the office and felt lightheaded. He denies any spinning type sensation or vertigo. He does complain of chronic pain to his back and right shoulder. He states that he was unable to take his lisinopril/ hydrochlorothiazide as well as his clonidine this morning. He does have long- standing hypertension normally. Is felt short of breath at times but denies any chest pain. No other complaints or modifying factors. - Related Data Home Medications Medication Instructions Recorded Confirmed Ranitidine HCl [Zantac] 150 mg PO BID 11/27/16 03/30/17 cloNIDine HCL [Catapres] 0.1 mg PO TID 01/26/17 03/30/17 Ibuprofen [Motrin] 800 mg PO DAILY PRN 03/30/17 03/30/17 Lidocaine 5% Oint [Xylocaine 5% 1 applic TOPICAL DAILY PRN 03/30/17 03/30/17 Oint] Lisinopril-Hctz 20-25 mg 1 tab PO DAILY 03/30/17 03/30/17 [Zestoretic 20-25] Meloxicam [Mobic] 15 mg PO DAILY 03/30/17 03/30/17 Allergies Allergy/AdvReac Type Severity Reaction Status Date / Time aspirin Allergy SEIZURE Verified 03/30/17 14:08 Review of Systems ROS Statement: Those systems with pertinent positive or pertinent negative responses have been documented in the HPI. ROS Other: All systems not noted in ROS Statement are negative. Past Medical History Past Medical History: GERD/Reflux, Hypertension Additional Past Medical History / Comment(s): ddd, stomach ulcer, kidney stone. urinary stent hiatal herina History of Any Multi-Drug Resistant Organisms: None Reported Additional Past Surgical History / Comment(s): head. Ankle sx Past Psychological History: No Psychological Hx Reported Smoking Status: Current every day smoker Past Alcohol Use History: Occasional Past Drug Use History: None Reported General Exam - General Exam Comments Initial Comments: GENERAL: The patient is well nourished and well hydrated. VITAL SIGNS: Heart rate, blood pressure, respiratory rate reviewed as recorded in nurse's notes. EYES: Pupils are round and reactive. Extraocular movements are intact. No conjunctival / lid redness or swelling. ENT: No external evidence of injury, swelling, or ecchymosis. Airway is patent. Throat is clear. NECK: Nontender. No swelling or evidence of injury. No subcutaneous emphysema. Trachea is midline. No thyroid mass. HEART: Regular rate and rhythm. Good peripheral pulses. LUNGS/CHEST: Breath sounds clear and equal bilaterally. No rales, rhonchi, or wheezes. No ecchymosis, subcutaneous emphysema, or tenderness. ABDOMEN: Abdomen soft without tenderness. No palpable masses or organomegaly. No peritoneal signs. No abdominal wall swelling or ecchymosis. EXTREMITIES: There is some tenderness present into the lower thoracic spine as well as into the right shoulder. NEUROLOGIC: Sensation is grossly intact. Cranial nerve exam reveals face is symmetrical, tongue is midline, speech is clear. SKIN: No abrasions or ecchymosis is noted. No induration or masses noted. PSYCHIATRIC: Alert and oriented. Appropriate behavior and judgment. Limitations: no limitations Course Vital Signs 03/30/17 03/30/17 03/30/17 12:02 13:06 14:48 Temperature 98.3 F 97.7 F Pulse Rate 84 63 90 Respiratory 20 18 24 Rate Blood Pressure 237/117 175/94 212/98 O2 Sat by Pulse 96 99 97 Oximetry 03/30/17 15:00 Temperature Pulse Rate Respiratory Rate Blood Pressure 202/93 O2 Sat by Pulse Oximetry Medical Decision Making - Medical Decision Making The patient was seen and examined. All diagnostics were reviewed. An EKG was done which shows a normal sinus rhythm at a rate of 74. There is no acute ST-T wave changes identified. The patient had a laboratory analysis completed. He also received 10 mg of hydralazine intravenously. He received his lisinopril/ hydrochlorothiazide pill. Is feeling improved on recheck. His blood pressure does come down nicely but later goes back up. He states that he has significant chronic pain that is currently exacerbated and that is blood pressure will elevate when he is in pain. He does receive an additional dose of hydralazine intravenously as well as some Dilaudid intravenously. He is doing better on recheck. His blood pressures come down again. It is felt as though he is stable for discharge. His dizziness seems to have resolved. It is felt as though he should follow-up with his chronic pain physician for additional evaluation as soon as possible. It is felt as though he stable for discharge and leaves in no distress. He was counseled regarding his blood pressure and need to be compliant with all medications in regard to treatment. - Lab Data Result diagrams: 03/30/17 12:45 03/30/17 12:45 Lab Results 03/30/17 03/30/17 03/30/17 Range/Units 12:21 12:45 12:45 WBC 12.2 H (3.8-10.6) k/uL RBC 4.61 (4.30-5.90) m/uL Hgb 15.5 (13.0-17.5) gm/dL Hct 45.4 (39.0-53.0) % MCV 98.6 (80.0-100.0) fL MCH 33.6 (25.0-35.0) pg MCHC 34.1 (31.0-37.0) g/dL RDW 13.8 (11.5-15.5) % Plt Count 288 (150-450) k/uL Neutrophils % 71 % Lymphocytes % 17 % Monocytes % 8 % Eosinophils % 2 % Basophils % 0 % Neutrophils # 8.7 H (1.3-7.7) k/uL Lymphocytes # 2.1 (1.0-4.8) k/uL Monocytes # 0.9 (0-1.0) k/uL Eosinophils # 0.2 (0-0.7) k/uL Basophils # 0.0 (0-0.2) k/uL PT (9.0-12.0) sec INR (<1.2) Sodium 142 (137-145) mmol/L Potassium 4.5 (3.5-5.1) mmol/L Chloride 110 H (98-107) mmol/L Carbon Dioxide 22 (22-30) mmol/L Anion Gap 10 mmol/L BUN 16 (9-20) mg/dL Creatinine 0.81 (0.66-1.25) mg/dL Est GFR (MDRD) Af Amer >60 (>60 ml/min/1.73 sqM) Est GFR (MDRD) Non-Af >60 (>60 ml/min/1.73 sqM) Glucose 90 (74-99) mg/dL Calcium 9.4 (8.4-10.2) mg/dL Total Bilirubin 0.5 (0.2-1.3) mg/dL AST 30 (17-59) U/L ALT 46 (21-72) U/L Alkaline Phosphatase 127 H (38-126) U/L Total Creatine Kinase 85 (55-170) U/L CK-MB (CK-2) 1.6 (0.0-2.4) ng/mL CK-MB (CK-2) Rel Index 1.9 Troponin I (0.000-0.034) ng/mL Total Protein 7.2 (6.3-8.2) g/dL Albumin 4.3 (3.5-5.0) g/dL Urine Color Urine Appearance (Clear) Urine pH (5.0-8.0) Ur Specific [place] (1.001-1.035) Urine Protein (Negative) Urine Glucose (UA) (Negative) Urine Ketones (Negative) Urine Blood (Negative) Urine Nitrite (Negative) Urine Bilirubin (Negative) Urine Urobilinogen (<2.0) mg/dL Ur Leukocyte Esterase (Negative) Urine RBC (0-5) /hpf Urine WBC (0-5) /hpf Urine Bacteria (None) /hpf Hyaline Casts (0-2) /lpf Urine Mucus (None) /hpf 03/30/17 03/30/17 03/30/17 Range/Units 12:45 12:45 14:50 WBC (3.8-10.6) k/uL RBC (4.30-5.90) m/uL Hgb (13.0-17.5) gm/dL Hct (39.0-53.0) % MCV (80.0-100.0) fL MCH (25.0-35.0) pg MCHC (31.0-37.0) g/dL RDW (11.5-15.5) % Plt Count (150-450) k/uL Neutrophils % % Lymphocytes % % Monocytes % % Eosinophils % % Basophils % % Neutrophils # (1.3-7.7) k/uL Lymphocytes # (1.0-4.8) k/uL Monocytes # (0-1.0) k/uL Eosinophils # (0-0.7) k/uL Basophils # (0-0.2) k/uL PT 10.4 (9.0-12.0) sec INR 1.0 (<1.2) Sodium (137-145) mmol/L Potassium (3.5-5.1) mmol/L Chloride (98-107) mmol/L Carbon Dioxide (22-30) mmol/L Anion Gap mmol/L BUN (9-20) mg/dL Creatinine (0.66-1.25) mg/dL Est GFR (MDRD) Af Amer (>60 ml/min/1.73 sqM) Est GFR (MDRD) Non-Af (>60 ml/min/1.73 sqM) Glucose (74-99) mg/dL Calcium (8.4-10.2) mg/dL Total Bilirubin (0.2-1.3) mg/dL AST (17-59) U/L ALT (21-72) U/L Alkaline Phosphatase (38-126) U/L Total Creatine Kinase (55-170) U/L CK-MB (CK-2) (0.0-2.4) ng/mL CK-MB (CK-2) Rel Index Troponin I <0.012 (0.000-0.034) ng/mL Total Protein (6.3-8.2) g/dL Albumin (3.5-5.0) g/dL Urine Color Yellow Urine Appearance Clear (Clear) Urine pH 6.0 (5.0-8.0) Ur Specific [place] 1.021 (1.001-1.035) Urine Protein Trace H (Negative) Urine Glucose (UA) Negative (Negative) Urine Ketones Negative (Negative) Urine Blood Negative (Negative) Urine Nitrite Negative (Negative) Urine Bilirubin Negative (Negative) Urine Urobilinogen <2.0 (<2.0) mg/dL Ur Leukocyte Esterase Trace H (Negative) Urine RBC <1 (0-5) /hpf Urine WBC 2 (0-5) /hpf Urine Bacteria Rare H (None) /hpf Hyaline Casts 1 (0-2) /lpf Urine Mucus Rare H (None) /hpf Disposition Clinical Impression: Hypertension, Lightheadedness, Chronic pain Disposition: HOME SELF-CARE Condition: Good Instructions: Chronic Pain (ED), Hypertension (ED), Dizziness (ED) Referrals: Endy Reynolds MD [Primary Care Provider] - 1-2 days Time of Disposition: 15:25
[2017-03-30 13:23] LABS: Creatine Kinase MB 1.6 ng/mL (0.0-2.4)
[2017-03-30] MEDS ORDERED: HYDROmorphone 1 MG/ML 1 ML SYRINGE IVP STA (14:50)
[2017-03-30 15:10] LABS: Appearance,Urine Clear (Clear); Bacteria,Urine Rare /hpf; Bilirubin,Urine Negative (Negative); Glucose,Urine (UA) Negative (Negative); Ketones,Urine Negative (Negative); Leukocyte Esterase,Urine Trace (Negative); Mucus,Urine Rare /hpf; Nitrite,Urine Negative (Negative); Particle Count 2257; Protein,Urine Trace (Negative); RBC,Urine <1 /hpf (0-5); Specific Gravity,Urine 1.021 (1.001-1.035); UA Billing (MACRO vs. MICRO) MICRO; Urobilinogen,Urine <2.0 mg/dL (<2.0); WBC,Urine 2 /hpf (0-5)
[2017-03-30 16:06] VITALS: BP 150/79; PULSE 82; RESP 18; TEMP 97.9
== END 2017-03-30 16:06 | disposition home or self-care (01) ==
LOC: EC 11:58
DX: I10 Essential (primary) hypertension (principal); R42 Dizziness and giddiness; M54.9 Dorsalgia, unspecified; G89.29 Other chronic pain; M25.511 Pain in right shoulder; K21.9 Gastro-esophageal reflux disease without esophagitis; F17.200 Nicotine dependence, unspecified, uncomplicated; Z88.6 Allergy status to analgesic agent; Z79.1 Long term (current) use of non-steroidal anti-inflammatories (NSAID); Z79.899 Other long term (current) drug therapy
CPT/HCPCS: 99284; 96374; 96376 ×2; 96375 ×3; 96361 ×3; 36415; 93005; 80053; 82550; 82553; 84484; 85025; 85610; 81001; J0360; J2405; J1885; J1170

== ENCOUNTER 2017-07-20 21:04 | Emergency (ER) | payer OTHER ==
[2017-07-20] MEDS ORDERED: KETOROLAC 60 MG/2 ML VIAL IM STA (21:25)
--- NOTE | 2017-07-20 21:31 | ED ---
Fall HPI - General Chief Complaint: Fall Stated Complaint: FALL, LEG PAIN Time Seen by Provider: 07/20/17 21:09 Source: patient Mode of arrival: EMS - History of Present Illness Initial Comments: This 57-year-old white male presents with a complaint of a slip and fall. He apparently was walking down some steps that were icy when he fell. He did hit his head but did not lose any consciousness. He complains of a headache as well as some neck pain. He also complains of some right shoulder pain, left hand pain, and left foot pain. This occurred approximately 20 minutes prior to arrival. He obtained a small abrasion to his left hand. He denies any other injuries. He does relate that he was drinking today but only had 2 drinks. He is a very poor historian. No other complaints or modifying factors. - Related Data Home Medications Medication Instructions Recorded Confirmed Ranitidine HCl [Zantac] 150 mg PO BID 11/27/16 03/30/17 cloNIDine HCL [Catapres] 0.1 mg PO TID 01/26/17 03/30/17 Ibuprofen [Motrin] 800 mg PO DAILY PRN 03/30/17 03/30/17 Lidocaine 5% Oint [Xylocaine 5% 1 applic TOPICAL DAILY PRN 03/30/17 03/30/17 Oint] Lisinopril-Hctz 20-25 mg 1 tab PO DAILY 03/30/17 03/30/17 [Zestoretic 20-25] Meloxicam [Mobic] 15 mg PO DAILY 03/30/17 03/30/17 Previous Rx's Medication Instructions Recorded Butalb/Acetaminophen/Caffeine 1 - 2 each PO Q4H PRN #20 tab 07/21/17 [Fioricet] Allergies Allergy/AdvReac Type Severity Reaction Status Date / Time aspirin Allergy SEIZURE Verified 07/20/17 22:35 Review of Systems ROS Statement: Those systems with pertinent positive or pertinent negative responses have been documented in the HPI. ROS Other: All systems not noted in ROS Statement are negative. Past Medical History Past Medical History: GERD/Reflux, Hypertension Additional Past Medical History / Comment(s): ddd, stomach ulcer, kidney stone. urinary stent hiatal herina History of Any Multi-Drug Resistant Organisms: None Reported Additional Past Surgical History / Comment(s): head. Ankle sx Past Psychological History: No Psychological Hx Reported Smoking Status: Current every day smoker Past Alcohol Use History: Occasional Past Drug Use History: None Reported General Exam - General Exam Comments Initial Comments: GENERAL: The patient is well nourished and well hydrated. VITAL SIGNS: Heart rate, blood pressure, respiratory rate reviewed as recorded in nurse's notes. EYES: Pupils are round and reactive. Extraocular movements are intact. No conjunctival / lid redness or swelling. ENT: No external evidence of injury, swelling, or ecchymosis. Airway is patent. Throat is clear. NECK: There is mild tenderness present to the bilateral paracervical musculature. No swelling or evidence of injury. No subcutaneous emphysema. Trachea is midline. No thyroid mass. HEART: Regular rate and rhythm. Good peripheral pulses. LUNGS/CHEST: Breath sounds clear and equal bilaterally. No rales, rhonchi, or wheezes. No ecchymosis, subcutaneous emphysema, or tenderness. ABDOMEN: Abdomen soft without tenderness. No palpable masses or organomegaly. No peritoneal signs. No abdominal wall swelling or ecchymosis. EXTREMITIES: There is mild tenderness noted to the perithoracic musculature, right shoulder, left foot, and left hand. There is decent range of motion. Normal muscle tone and function. No thoracolumbar tenderness. NEUROLOGIC: Sensation is grossly intact. Cranial nerve exam reveals face is symmetrical, tongue is midline, speech is clear. SKIN: No abrasions or ecchymosis is noted. No induration or masses noted. PSYCHIATRIC: Alert and oriented. Appropriate behavior and judgment. Limitations: no limitations Course Vital Signs 07/20/17 07/20/17 21:09 22:19 Temperature 98.6 F Pulse Rate 95 89 Respiratory 18 20 Rate Blood Pressure 178/97 143/73 O2 Sat by Pulse 96 99 Oximetry Medical Decision Making - Medical Decision Making The patient was seen and examined. His minor abrasion to his left hand was cleansed and dressed. All diagnostics were reviewed. He received Toradol parenterally. He had a computed tomography scan of the head and neck and this does not show any acute processes. The x-rays of the right shoulder, left hand , left foot, and thoracic spine do not show any acute process. His laboratory is all within normal limits except for an elevated alcohol level of 165. He is still complaining of pain on recheck and is given 4 mg of morphine. He is counseled extensively regarding alcohol intoxication. Is not felt as though he should drink anymore due to increasing his risks of falls especially with his morbid obesity. He states that he already uses a wheelchair most of the time. He is appearing less intoxicated on recheck. He is watched for several hours until sober. It is felt as though he is stable for discharge and leaves in no significant distress. - Lab Data Result diagrams: 07/20/17 21:25 07/20/17 21:25 Lab Results 07/20/17 07/20/17 07/20/17 Range/Units 21:25 21:25 21:25 WBC 7.4 (3.8-10.6) k/uL RBC 4.25 L (4.30-5.90) m/uL Hgb 13.5 (13.0-17.5) gm/dL Hct 41.5 (39.0-53.0) % MCV 97.6 (80.0-100.0) fL MCH 31.8 (25.0-35.0) pg MCHC 32.6 (31.0-37.0) g/dL RDW 13.8 (11.5-15.5) % Plt Count 321 (150-450) k/uL Neutrophils % (Manual) 52 % Lymphocytes % (Manual) 40 % Monocytes % (Manual) 4 % Eosinophils % (Manual) 3 % Basophils % (Manual) 1 % Neutrophils # (Manual) 3.85 (1.3-7.7) k/uL Lymphocytes # (Manual) 2.96 (1.0-4.8) k/uL Monocytes # (Manual) 0.30 (0-1.0) k/uL Eosinophils # (Manual) 0.22 (0-0.7) k/uL Basophils # (Manual) 0.07 (0-0.2) k/uL Nucleated RBCs 0 (0-0) /100 WBC Manual Slide Review Performed Poikilocytosis (manual Present PT 9.9 (9.0-12.0) sec INR 1.0 (<1.2) APTT 23.1 (22.0-30.0) sec Sodium 143 (137-145) mmol/L Potassium 3.7 (3.5-5.1) mmol/L Chloride 106 (98-107) mmol/L Carbon Dioxide 24 (22-30) mmol/L Anion Gap 13 mmol/L BUN 11 (9-20) mg/dL Creatinine 0.72 (0.66-1.25) mg/dL Est GFR (MDRD) Af Amer >60 (>60 ml/min/1.73 sqM) Est GFR (MDRD) Non-Af >60 (>60 ml/min/1.73 sqM) Glucose 103 H (74-99) mg/dL Calcium 9.0 (8.4-10.2) mg/dL Total Bilirubin 0.2 (0.2-1.3) mg/dL AST 36 (17-59) U/L ALT 44 (21-72) U/L Alkaline Phosphatase 94 (38-126) U/L Total Protein 6.5 (6.3-8.2) g/dL Albumin 3.8 (3.5-5.0) g/dL Serum Alcohol 165 mg/dL Disposition Clinical Impression: Fall, Head injury, Hypertension, Sprain of left foot, Sprain of right shoulder , Abrasion of left hand, Contusion of left hand, Cervical strain, Thoracic myofascial strain, Morbid obesity, Alcohol intoxication Disposition: HOME SELF-CARE Condition: Fair Instructions: Head Injury (ED), Sprain (ED), Contusion in Adults (ED), Abrasion (ED), Shoulder Sprain (ED), Arthritis (ED), Fall Prevention for Older Adults (ED), Alcohol Intoxication (ED) Prescriptions: Butalb/Acetaminophen/Caffeine [Fioricet] 1 - 2 each PO Q4H PRN #20 tab PRN Reason: Headache Referrals: Fritz Brizuela DO [Primary Care Provider] - 1-2 days Time of Disposition: 00:10
[2017-07-20 21:43] LABS: HCT 41.5 % (39.0-53.0); HGB 13.5 gm/dL (13.0-17.5); MCH 31.8 pg (25.0-35.0); MCHC 32.6 g/dL (31.0-37.0); MCV 97.6 fL (80.0-100.0); Mean Platelet Volume 7.4; Platelet Count 321 k/uL (150-450); RBC 4.25 m/uL (4.30-5.90); RDW 13.8 % (11.5-15.5); WBC 7.4 k/uL (3.8-10.6)
[2017-07-20 21:49] LABS: ALT 44 U/L (21-72); AST 36 U/L (17-59); Albumin 3.8 g/dL (3.5-5.0); Alkaline Phosphatase 94 U/L (38-126); Anion Gap 13 mmol/L; Blood Urea Nitrogen 11 mg/dL (9-20); Carbon Dioxide 24 mmol/L (22-30); Chloride 106 mmol/L (98-107); Glucose 103 mg/dL (74-99); Potassium 3.7 mmol/L (3.5-5.1); Sodium 143 mmol/L (137-145); Total Bilirubin 0.2 mg/dL (0.2-1.3); Total Protein 6.5 g/dL (6.3-8.2)
[2017-07-20 21:55] LABS: Partial Thromboplastin Time 23.1 sec (22.0-30.0); Prothrombin Time 9.9 sec (9.0-12.0)
--- NOTE | 2017-07-20 22:04 | XR ---
EXAMINATION TYPE: XR hand complete LT DATE OF EXAM: 07/20/2017 CLINICAL HISTORY: Left hand pain after a fall TECHNIQUE: Frontal, lateral and oblique images of the left hand are obtained. COMPARISON: None. FINDINGS: There is no acute fracture/dislocation evident in the left hand. The joint spaces in the l eft hand appear within normal limits. The overlying soft tissue appears unremarkable. Obscuration of the proximal fourth phalanx is seen by overlying metallic ring. IMPRESSION: Obscuration of the fourth proximal phalanx by overlying metallic ring, otherwise there is no acute fracture or dislocation in the left hand.
[2017-07-20 22:05] LABS: Alcohol 165 mg/dL
[2017-07-20 22:08] LABS: Basophils # (M) 0.07 k/uL (0-0.2); Eosinophils # (M) 0.22 k/uL (0-0.7); Lymphocytes # (M) 2.96 k/uL (1.0-4.8); Neutrophils # (M) 3.85 k/uL (1.3-7.7); Neutrophils % (M) 52 %; Nucleated Red Blood Cells 0 /100 WBC (0-0); Total Cells Counted 100
[2017-07-20 22:09] LABS: Poikilocytosis (M) Present
--- NOTE | 2017-07-20 22:09 | CT ---
EXAMINATION TYPE: CT brain nathalie shepherd con DATE OF EXAM: 07/20/2017 COMPARISON: 01/16/2011 HISTORY: Fall with head injury. No LOC, no neck pain. CT DLP: 1837.80 mGycm. Automated Exposure Control for Dose Reduction was Utilized. TECHNIQUE: CT scan of the head and cervical spine are performed without contrast. FINDINGS: There is no acute intracranial hemorrhage, mass effect, or midline shift identified. The ventricles and sulci are mildly prominent but symmetric compatible with age-related volume loss. Fe w scattered foci of hypoattenuation are seen within the periventricular and subcortical white matter. These are most commonly related to sequela of microangiopathy. The globes are intact. Moderate mucos al thickening is seen of the ethmoid sinuses. Remaining visualized paranasal sinuses and mastoid air cells are well aerated. Calvarium is intact. Cervical spine is visualized in its entirety from C1 through upper thoracic levels and demonstrates s atisfactory alignment without evidence of acute fracture or dislocation. Prevertebral soft tissue ap pears within normal limits. The C1-C2 articulation is unremarkable. Minimal degenerative changes of the cervical spine are seen as small posterior disc osteophyte complexes at C4-C5 and C6-C7. No sign ificant spinal canal stenosis. There is straightening of the usual cervical lordosis. IMPRESSION: 1. There is no acute fracture or dislocation evident in the cervical spine. 2. No acute intracranial hemorrhage, mass effect, or midline shift is seen. 3. Mild nonspecific white matter change, most commonly on the basis of chronic microangiopathy. 4. Straightening of the usual cervical lordosis that may be related to muscular spasm or patient posi tioning.
--- NOTE | 2017-07-20 22:10 | XR ---
EXAMINATION TYPE: XR foot complete LT DATE OF EXAM: 07/20/2017 COMPARISON: NONE HISTORY: Pain TECHNIQUE: 3 views FINDINGS: Metatarsals are intact. I see no fracture nor dislocation. There is an Achilles calcaneal s pur. IMPRESSION: Calcaneal spurring. No fracture seen.
--- NOTE | 2017-07-20 22:28 | XR ---
EXAMINATION TYPE: XR thoracic spine 2V DATE OF EXAM: 07/20/2017 COMPARISON: NONE HISTORY: Back pain. Slip and fall. TECHNIQUE: 3 views FINDINGS: Thoracic vertebra have normal spacing and alignment. Posterior elements are intact. There i s anterior spurring at C6-7. There is no thoracic paraspinal mass. I see no compression fracture. IMPRESSION: Mild spurring. No fracture seen. No change compared to chest x-ray of 01/29/2017.
--- NOTE | 2017-07-20 22:29 | XR ---
EXAMINATION TYPE: XR shoulder complete RT DATE OF EXAM: 07/20/2017 COMPARISON: NONE HISTORY: Pain TECHNIQUE: 3 views FINDINGS: I see no fracture nor dislocation. Glenohumeral joint is intact. There is spurring of the h umeral head. There is cystic change at the greater tuberosity of the humerus. IMPRESSION: Osteoarthritic changes in the shoulder joint. No fracture.
[2017-07-20] MEDS ORDERED: [UNRECOGNIZED DRUG - OTHER] IV ONE (23:35)
[2017-07-20] MEDS ORDERED: MORPHINE SULFATE 5 MG/ML SYRINGE IV ONE (23:45)
[2017-07-21 00:30] VITALS: BP 151/94; PULSE 85; RESP 19; TEMP 97.8
== END 2017-07-21 00:30 | disposition home or self-care (01) ==
LOC: EC 21:04
DX: S43.401A Unspecified sprain of right shoulder joint, initial encounter (principal); S93.602A Unspecified sprain of left foot, initial encounter; S16.1XXA Strain of muscle, fascia and tendon at neck level, initial encounter; S29.019A Strain of muscle and tendon of unspecified wall of thorax, initial encounter; S60.222A Contusion of left hand, initial encounter; S09.90XA Unspecified injury of head, initial encounter; F10.129 Alcohol abuse with intoxication, unspecified; I10 Essential (primary) hypertension; E66.01 Morbid (severe) obesity due to excess calories; K21.9 Gastro-esophageal reflux disease without esophagitis; F17.200 Nicotine dependence, unspecified, uncomplicated; Z68.42 Body mass index [BMI] 45.0-49.9, adult; Z88.6 Allergy status to analgesic agent; Z79.899 Other long term (current) drug therapy; W10.9XXA Fall (on) (from) unspecified stairs and steps, initial encounter
CPT/HCPCS: 36415; 80053; 85025; 85610; 85730; 80320; 72070; 73030; 73130; 73630; 72125; 70450; 99284; 96372; 96374; J1885; J2274

== ENCOUNTER 2018-10-23 21:59 | Emergency (ER) | payer OTHER ==
[2018-10-23 22:52] LABS: Basophils % (A) 0 %; Eosinophils # (A) 0.4 k/uL (0-0.7); Eosinophils % (A) 6 %; Lymphocytes # (A) 2.1 k/uL (1.0-4.8); Lymphocytes % (A) 31 %; MCH 31.1 pg (25.0-35.0); MCHC 33.5 g/dL (31.0-37.0); Mean Platelet Volume 6.8; Monocytes # (A) 0.5 k/uL (0-1.0); Monocytes % (A) 7 %; Neutrophils # (A) 3.7 k/uL (1.3-7.7); Neutrophils % (A) 54 %; Platelet Count 277 k/uL (150-450); RBC 4.51 m/uL (4.30-5.90); RDW 12.8 % (11.5-15.5); WBC 6.8 k/uL (3.8-10.6)
--- NOTE | 2018-10-23 22:57 | XR ---
EXAM: XR Chest, 2 Views CLINICAL HISTORY: Chest pain TECHNIQUE: Frontal and lateral views of the chest. COMPARISON: Chest x-ray dated 01/29/2017 FINDINGS: Lungs: Unremarkable. No consolidation. Pleural space: Unremarkable. No pneumothorax. Heart: Heart is mildly enlarged. Mediastinum: Unremarkable. Bones/joints: Unremarkable. IMPRESSION: No acute findings.
[2018-10-23 23:02] LABS: Partial Thromboplastin Time 24.6 sec (22.0-30.0); Prothrombin Time 10.3 sec (9.0-12.0)
[2018-10-23 23:07] LABS: ALT 20 U/L (21-72); AST 18 U/L (17-59); Albumin 3.7 g/dL (3.5-5.0); Alkaline Phosphatase 86 U/L (38-126); Anion Gap 9 mmol/L; Blood Urea Nitrogen 9 mg/dL (9-20); Carbon Dioxide 27 mmol/L (22-30); Chloride 105 mmol/L (98-107); Glucose 117 mg/dL (74-99); Magnesium 1.6 mg/dL (1.6-2.3); Potassium 3.4 mmol/L (3.5-5.1); Sodium 141 mmol/L (137-145); Total Bilirubin 0.5 mg/dL (0.2-1.3); Total Protein 6.3 g/dL (6.3-8.2)
[2018-10-23] MEDS ORDERED: CEPHALEXIN 500MG STARTER PACK 4 CAP BTL PO STA (23:23)
[2018-10-23 23:34] VITALS: BP 118/74; PULSE 84; RESP 19
--- NOTE | 2018-10-23 23:47 | ED ---
Extremity Problem HPI - General Chief complaint: Extremity Problem,Nontraumatic Stated complaint: Swollen feet Time Seen by Provider: 10/23/18 22:15 Source: family Mode of arrival: wheelchair Limitations: no limitations - History of Present Illness Initial comments: Jersey Holden is a 58-year-old gentleman who presents to the emergency department today for evaluation of lower extremity swelling and redness. Patient also reports that he's noticed some exercise intolerance and shortness of breath when walking up stairs. Patient reports he discussed the symptoms with his sister's earlier in the day, he wasn't too concerned by these symptoms and wasn't getting come to the hospital. He reports that he was in bed tonight when his sister showed up his house and told him that he had to come to the hospital for evaluation. Patient didn't want argue with his sister so he decided to come. Patient denies any fevers, chills, chest pain, palpitations, nausea or vomiting he denies any change in activity level. Patient reports he's noticed progressively worsening swelling of his bilateral lower extremities for a long period of time but over the past week has noticed that his left lower extremity seems red and warm to the touch. Patient reports that for the past 3 days he's been relaxing keeping his legs elevated is noticed that the swelling is bilateral lower extremities has improved significantly. Sister at bedside expresses concern that the patient may have cellulitis. - Related Data Home Medications Medication Instructions Recorded Confirmed Ranitidine HCl [Zantac] 150 mg PO BID 11/27/16 03/30/17 cloNIDine HCL [Catapres] 0.1 mg PO TID 01/26/17 03/30/17 Ibuprofen [Motrin] 800 mg PO DAILY PRN 03/30/17 03/30/17 Lidocaine 5% Oint [Xylocaine 5% 1 applic TOPICAL DAILY PRN 03/30/17 03/30/17 Oint] Lisinopril-Hctz 20-25 mg 1 tab PO DAILY 03/30/17 03/30/17 [Zestoretic 20-25] Meloxicam [Mobic] 15 mg PO DAILY 03/30/17 03/30/17 Previous Rx's Medication Instructions Recorded Butalb/Acetaminophen/Caffeine 1 - 2 each PO Q4H PRN #20 tab 07/21/17 [Fioricet] Cephalexin [Keflex] 500 mg PO Q6HR 7 Days #28 cap 10/23/18 Allergies Allergy/AdvReac Type Severity Reaction Status Date / Time aspirin Allergy SEIZURE Verified 10/23/18 22:03 Review of Systems ROS Statement: Those systems with pertinent positive or pertinent negative responses have been documented in the HPI. ROS Other: All systems not noted in ROS Statement are negative. Past Medical History Past Medical History: Asthma, GERD/Reflux, Hypertension Additional Past Medical History / Comment(s): ddd, stomach ulcer, kidney stone. urinary stent hiatal herina History of Any Multi-Drug Resistant Organisms: None Reported Past Surgical History: Orthopedic Surgery Additional Past Surgical History / Comment(s): head. Ankle sx Past Psychological History: No Psychological Hx Reported Smoking Status: Current every day smoker Past Alcohol Use History: Occasional Past Drug Use History: None Reported General Exam - General Exam Comments Initial Comments: Physical Exam GENERAL: Chronically ill appearing elderly gentleman with poor personal hygiene HENT: Normocephalic, Atraumatic. Edentulous EYES: PERRL, EOMI PULMONARY: Unlabored respirations. No audible rales rhonchi or wheezing was noted. CARDIOVASCULAR: There is a regular rate and rhythm without any murmurs gallops or rubs. Warm and well perfused extremities Palpable DP and PT pulses bilaterally 2+ pedal edema to the knees bilaterally ABDOMEN: Obese, nontender SKIN: Bilateral lower extremities with skin changes consistent with chronic venous stasis however left lower extremity does have some erythema and warmth : Deferred NEUROLOGIC: Patient is alert and oriented x3. Moving all extremities spontaneously MUSCULOSKELETAL: Normal extremities with adequate strength and full range of motion. No lower extremity swelling or edema. No calf tenderness. PSYCHIATRIC: Normal psychiatric evaluation. Limitations: no limitations Limitations: no limitations Course Vital Signs 10/23/18 10/23/18 10/23/18 22:00 22:30 23:00 Temperature 97.8 F Pulse Rate 104 H 93 87 Respiratory 20 20 18 Rate Blood Pressure 162/79 127/99 111/72 O2 Sat by Pulse 99 95 95 Oximetry 10/23/18 10/24/18 23:30 00:05 Temperature 98.1 F Pulse Rate 84 Respiratory 19 Rate Blood Pressure 118/74 O2 Sat by Pulse 96 Oximetry Medical Decision Making - Medical Decision Making The patient was seen and evaluated history was obtained from the patient and family at bedside This is a morbidly obese gentleman with bilateral lower extremity edema seems to have some erythema of the left lower extremity no systemic symptoms. Patient does have exercise intolerance however he is morbidly obese and profoundly deconditioned. A workup for heart failure was initiated, EKG was reviewed, EKG was obtained at 2221 Rate is 92, rhythm is sinus with PVC, there is a normal axis and normal intervals, OK 156, QRS 94, QTC 457 there are no acute ST elevations or d epressions there is no evidence of acute ischemia or infarction or arrhythmia. Those are unremarkable there is no elevation of troponin her BNP No leukocytosis I do suspect the patient has chronic venous stasis and dependent edema however given that his left leg does appear more erythematous than the right I will initiate treatment with prescription antibiotics. This plan was discussed with the patient who is agreeable. All questions pertaining care were answered return parameters were discussed patient was discharged home in stable condition. - Lab Data Result diagrams: 10/23/18 22:22 10/23/18 22:22 Lab Results 10/23/18 10/23/18 10/23/18 Range/Units 22:22 22:22 22:22 WBC 6.8 (3.8-10.6) k/uL RBC 4.51 (4.30-5.90) m/uL Hgb 14.0 (13.0-17.5) gm/dL Hct 42.0 (39.0-53.0) % MCV 93.0 (80.0-100.0) fL MCH 31.1 (25.0-35.0) pg MCHC 33.5 (31.0-37.0) g/dL RDW 12.8 (11.5-15.5) % Plt Count 277 (150-450) k/uL Neutrophils % 54 % Lymphocytes % 31 % Monocytes % 7 % Eosinophils % 6 % Basophils % 0 % Neutrophils # 3.7 (1.3-7.7) k/uL Lymphocytes # 2.1 (1.0-4.8) k/uL Monocytes # 0.5 (0-1.0) k/uL Eosinophils # 0.4 (0-0.7) k/uL Basophils # 0.0 (0-0.2) k/uL PT (9.0-12.0) sec INR (<1.2) APTT (22.0-30.0) sec Sodium 141 (137-145) mmol/L Potassium 3.4 L (3.5-5.1) mmol/L Chloride 105 (98-107) mmol/L Carbon Dioxide 27 (22-30) mmol/L Anion Gap 9 mmol/L BUN 9 (9-20) mg/dL Creatinine 0.75 (0.66-1.25) mg/dL Est GFR (CKD-EPI)AfAm >90 (>60 ml/min/1.73 sqM) Est GFR (CKD-EPI)NonAf >90 (>60 ml/min/1.73 sqM) Glucose 117 H (74-99) mg/dL Calcium 9.0 (8.4-10.2) mg/dL Magnesium 1.6 (1.6-2.3) mg/dL Total Bilirubin 0.5 (0.2-1.3) mg/dL AST 18 (17-59) U/L ALT 20 L (21-72) U/L Alkaline Phosphatase 86 (38-126) U/L Troponin I (0.000-0.034) ng/mL NT-Pro-B Natriuret Pep 92 pg/mL Total Protein 6.3 (6.3-8.2) g/dL Albumin 3.7 (3.5-5.0) g/dL 10/23/18 10/23/18 Range/Units 22:22 22:22 WBC (3.8-10.6) k/uL RBC (4.30-5.90) m/uL Hgb (13.0-17.5) gm/dL Hct (39.0-53.0) % MCV (80.0-100.0) fL MCH (25.0-35.0) pg MCHC (31.0-37.0) g/dL RDW (11.5-15.5) % Plt Count (150-450) k/uL Neutrophils % % Lymphocytes % % Monocytes % % Eosinophils % % Basophils % % Neutrophils # (1.3-7.7) k/uL Lymphocytes # (1.0-4.8) k/uL Monocytes # (0-1.0) k/uL Eosinophils # (0-0.7) k/uL Basophils # (0-0.2) k/uL PT 10.3 (9.0-12.0) sec INR 1.0 (<1.2) APTT 24.6 (22.0-30.0) sec Sodium (137-145) mmol/L Potassium (3.5-5.1) mmol/L Chloride (98-107) mmol/L Carbon Dioxide (22-30) mmol/L Anion Gap mmol/L BUN (9-20) mg/dL Creatinine (0.66-1.25) mg/dL Est GFR (CKD-EPI)AfAm (>60 ml/min/1.73 sqM) Est GFR (CKD-EPI)NonAf (>60 ml/min/1.73 sqM) Glucose (74-99) mg/dL Calcium (8.4-10.2) mg/dL Magnesium (1.6-2.3) mg/dL Total Bilirubin (0.2-1.3) mg/dL AST (17-59) U/L ALT (21-72) U/L Alkaline Phosphatase (38-126) U/L Troponin I <0.012 (0.000-0.034) ng/mL NT-Pro-B Natriuret Pep pg/mL Total Protein (6.3-8.2) g/dL Albumin (3.5-5.0) g/dL Disposition Clinical Impression: Lower extremity cellulitis Disposition: HOME SELF-CARE Condition: Stable Instructions (If sedation given, give patient instructions): Cellulitis (DC) Prescriptions: Cephalexin [Keflex] 500 mg PO Q6HR 7 Days #28 cap Is patient prescribed a controlled substance at d/c from ED?: No Referrals: None,Stated [Primary Care Provider] - 1-2 days
[2018-10-24 00:06] VITALS: TEMP 98.1
== END 2018-10-24 00:05 | disposition home or self-care (01) ==
LOC: EC 21:59
DX: L03.116 Cellulitis of left lower limb (principal); L03.115 Cellulitis of right lower limb; E66.01 Morbid (severe) obesity due to excess calories; Z68.41 Body mass index [BMI] 40.0-44.9, adult; K21.9 Gastro-esophageal reflux disease without esophagitis; I10 Essential (primary) hypertension; F17.200 Nicotine dependence, unspecified, uncomplicated; Z79.1 Long term (current) use of non-steroidal anti-inflammatories (NSAID); Z79.899 Other long term (current) drug therapy; Z88.6 Allergy status to analgesic agent
CPT/HCPCS: 36415; 71046; 80053; 83735; 83880; 84484; 85025; 85610; 85730; 93005; 99284

== ENCOUNTER 2019-03-21 16:02 | Emergency (ER) | payer OTHER ==
[2019-03-21 16:15] VITALS: TEMP 98.3
[2019-03-21] MEDS ORDERED: KETOROLAC 30 MG/ML 1 ML VIAL IVP STA (16:41)
--- NOTE | 2019-03-21 17:03 | ED ---
General Adult HPI - General Chief complaint: Extremity Problem,Nontraumatic Stated complaint: poss CHF-sent by [employer] Time Seen by Provider: 03/21/19 16:21 Source: patient Mode of arrival: wheelchair Limitations: no limitations - History of Present Illness Initial comments: 58 year-old male patient presents to the emergency department today for evalu ation of lower extremity pain and swelling. Patient states he has had swelling in the lower legs for the last 1-2 months. Patient states that over the last few days the legs and becoming more painful. States the air touching them makes him hurt. Patient states that he also has some shortness of breath with this. States he has "blacked out" twice over the last week. Patient states that he wakes up on the floor. Patient does admit to drinking whiskey on a daily basis. Does admit to using meth yesterday, states he thought it was marijuana. Patient denies any fever or chills. Denies any nausea or vomiting. Patient denies any recent rash, shortness breath, chest pain, diarrhea, constipation, back pain, numbness, tingling, dizziness, weakness, hematuria, dysuria, urinary urgency, urinary frequency, headache, visual changes, or any other complaints. - Related Data Home Medications Medication Instructions Recorded Confirmed Ranitidine HCl [Zantac] 150 mg PO BID 11/27/16 03/21/19 Ibuprofen [Motrin] 800 mg PO DAILY PRN 03/30/17 03/21/19 Naproxen Sodium [Aleve] 220 mg PO Q12HR 03/21/19 03/21/19 Previous Rx's Medication Instructions Recorded Cephalexin [Keflex] 500 mg PO Q6HR #40 cap 03/21/19 Allergies Allergy/AdvReac Type Severity Reaction Status Date / Time aspirin Allergy SEIZURE Verified 03/21/19 16:39 codeine AdvReac Nausea & Verified 03/21/19 16:40 Vomiting Review of Systems ROS Statement: Those systems with pertinent positive or pertinent negative responses have been documented in the HPI. ROS Other: All systems not noted in ROS Statement are negative. Past Medical History Past Medical History: Asthma, GERD/Reflux, Hypertension Additional Past Medical History / Comment(s): ddd, stomach ulcer, kidney stone. urinary stent hiatal herina History of Any Multi-Drug Resistant Organisms: None Reported Past Surgical History: Orthopedic Surgery Additional Past Surgical History / Comment(s): head. Ankle sx Past Psychological History: No Psychological Hx Reported Smoking Status: Current every day smoker Past Alcohol Use History: Occasional Past Drug Use History: None Reported General Exam Limitations: no limitations General appearance: alert, in no apparent distress, other (This is a well- developed, well-nourished adult male patient in no acute distress. Vital signs upon presentation are temperature 98.3F, pulse 97, respirations 18, blood pressure 212/106, pulse ox 100% on room air.) Eye exam: Present: normal appearance, PERRL, EOMI. Absent: scleral icterus, conjunctival injection, periorbital swelling Respiratory exam: Present: normal lung sounds bilaterally. Absent: respiratory distress, wheezes, rales, rhonchi, stridor Cardiovascular Exam: Present: regular rate, normal rhythm, normal heart sounds. Absent: systolic murmur, diastolic murmur, rubs, gallop, clicks GI/Abdominal exam: Present: soft, normal bowel sounds. Absent: distended, tenderness, guarding, rebound, rigid Neurological exam: Present: alert, oriented X3, CN II-XII intact Psychiatric exam: Present: normal affect, normal mood Skin exam: Present: warm, dry, intact, normal color. Absent: rash Course Vital Signs 03/21/19 03/21/19 03/21/19 16:12 18:05 18:30 Temperature 98.3 F Pulse Rate 97 99 97 Respiratory 18 16 14 Rate Blood Pressure 212/106 152/102 152/102 O2 Sat by Pulse 100 Oximetry 03/21/19 03/21/19 03/21/19 18:53 19:01 19:31 Temperature Pulse Rate 104 H 96 97 Respiratory 22 14 14 Rate Blood Pressure 147/90 147/90 171/123 O2 Sat by Pulse 99 Oximetry EKG Findings - EKG Comments: EKG Findings:: EKG obtained at 1650 shows normal sinus rhythm with a ventricular rate of 95, ND interval 150, QRS duration 88, QT 370, QTC 464. No evidence of ST elevation or depression. Medical Decision Making - Medical Decision Making 58 year-old male patient presented to the emergency department today for evaluation of bilateral lower extremity edema and pain. Physical examination did reveal 2-3+ pitting edema to the bilateral lower legs and feet. The left leg is hot and red. Patient is afebrile. Blood pressure initially elevated did improve during stay. Labs reviewed and did reveal white blood cell count at 11. BNP was negative. Chest x-ray showed cardiomegaly with no effusion. Patient will be discharged home with prescription for antibiotics to treat cellulitis of the left lower extremity. He is instructed to use compression stockings and to keep legs elevated. He is instructed to follow-up with his primary care physician for recheck in 1-2 days. Return parameters discussed in detail. He verbalizes understanding and agrees with this plan - Lab Data Result diagrams: 03/21/19 17:44 03/21/19 17:44 Lab Results 03/21/19 03/21/19 03/21/19 Range/Units 17:44 17:44 17:44 WBC 11.0 H (3.8-10.6) k/uL RBC 4.55 (4.30-5.90) m/uL Hgb 14.5 (13.0-17.5) gm/dL Hct 42.6 (39.0-53.0) % MCV 93.6 (80.0-100.0) fL MCH 31.9 (25.0-35.0) pg MCHC 34.1 (31.0-37.0) g/dL RDW 12.8 (11.5-15.5) % Plt Count 371 (150-450) k/uL Neutrophils % 75 % Lymphocytes % 13 % Monocytes % 7 % Eosinophils % 3 % Basophils % 1 % Neutrophils # 8.3 H (1.3-7.7) k/uL Lymphocytes # 1.5 (1.0-4.8) k/uL Monocytes # 0.7 (0-1.0) k/uL Eosinophils # 0.3 (0-0.7) k/uL Basophils # 0.1 (0-0.2) k/uL PT (9.0-12.0) sec INR (<1.2) APTT (22.0-30.0) sec Sodium 138 (137-145) mmol/L Potassium 3.6 (3.5-5.1) mmol/L Chloride 102 (98-107) mmol/L Carbon Dioxide 24 (22-30) mmol/L Anion Gap 12 mmol/L BUN 12 (9-20) mg/dL Creatinine 0.68 (0.66-1.25) mg/dL Est GFR (CKD-EPI)AfAm >90 (>60 ml/min/1.73 sqM) Est GFR (CKD-EPI)NonAf >90 (>60 ml/min/1.73 sqM) Glucose 104 H (74-99) mg/dL Calcium 9.4 (8.4-10.2) mg/dL Magnesium 1.8 (1.6-2.3) mg/dL Total Bilirubin 0.7 (0.2-1.3) mg/dL AST 26 (17-59) U/L ALT 25 (21-72) U/L Alkaline Phosphatase 113 (38-126) U/L Troponin I (0.000-0.034) ng/mL NT-Pro-B Natriuret Pep 32 pg/mL Total Protein 7.4 (6.3-8.2) g/dL Albumin 4.2 (3.5-5.0) g/dL Lipase 37 (23-300) U/L Urine Color Urine Appearance (Clear) Urine pH (5.0-8.0) Ur Specific [place] (1.001-1.035) Urine Protein (Negative) Urine Glucose (UA) (Negative) Urine Ketones (Negative) Urine Blood (Negative) Urine Nitrite (Negative) Urine Bilirubin (Negative) Urine Urobilinogen (<2.0) mg/dL Ur Leukocyte Esterase (Negative) Urine RBC (0-5) /hpf Urine WBC (0-5) /hpf Ur Squamous Epith Cells (0-4) /hpf Amorphous Sediment (None) /hpf Hyaline Casts (0-2) /lpf Urine Mucus (None) /hpf Urine Opiates Screen (NotDetected) Ur Oxycodone Screen (NotDetected) Urine Methadone Screen (NotDetected) Ur Propoxyphene Screen (NotDetected) Ur Barbiturates Screen (NotDetected) U Tricyclic Antidepress (NotDetected) Ur Phencyclidine Scrn (NotDetected) Ur Amphetamines Screen (NotDetected) U Methamphetamines Scrn (NotDetected) U Benzodiazepines Scrn (NotDetected) Urine Cocaine Screen (NotDetected) U Marijuana (THC) Screen (NotDetected) Serum Alcohol <10 mg/dL 03/21/19 03/21/19 03/21/19 Range/Units 17:44 17:44 18:50 WBC (3.8-10.6) k/uL RBC (4.30-5.90) m/uL Hgb (13.0-17.5) gm/dL Hct (39.0-53.0) % MCV (80.0-100.0) fL MCH (25.0-35.0) pg MCHC (31.0-37.0) g/dL RDW (11.5-15.5) % Plt Count (150-450) k/uL Neutrophils % % Lymphocytes % % Monocytes % % Eosinophils % % Basophils % % Neutrophils # (1.3-7.7) k/uL Lymphocytes # (1.0-4.8) k/uL Monocytes # (0-1.0) k/uL Eosinophils # (0-0.7) k/uL Basophils # (0-0.2) k/uL PT 10.3 (9.0-12.0) sec INR 1.0 (<1.2) APTT 26.1 (22.0-30.0) sec Sodium (137-145) mmol/L Potassium (3.5-5.1) mmol/L Chloride (98-107) mmol/L Carbon Dioxide (22-30) mmol/L Anion Gap mmol/L BUN (9-20) mg/dL Creatinine (0.66-1.25) mg/dL Est GFR (CKD-EPI)AfAm (>60 ml/min/1.73 sqM) Est GFR (CKD-EPI)NonAf (>60 ml/min/1.73 sqM) Glucose (74-99) mg/dL Calcium (8.4-10.2) mg/dL Magnesium (1.6-2.3) mg/dL Total Bilirubin (0.2-1.3) mg/dL AST (17-59) U/L ALT (21-72) U/L Alkaline Phosphatase (38-126) U/L Troponin I <0.012 (0.000-0.034) ng/mL NT-Pro-B Natriuret Pep pg/mL Total Protein (6.3-8.2) g/dL Albumin (3.5-5.0) g/dL Lipase (23-300) U/L Urine Color Yellow Urine Appearance Cloudy (Clear) Urine pH 6.0 (5.0-8.0) Ur Specific [place] 1.020 (1.001-1.035) Urine Protein Trace H (Negative) Urine Glucose (UA) Negative (Negative) Urine Ketones Negative (Negative) Urine Blood Trace H (Negative) Urine Nitrite Negative (Negative) Urine Bilirubin Negative (Negative) Urine Urobilinogen <2.0 (<2.0) mg/dL Ur Leukocyte Esterase Negative (Negative) Urine RBC 4 (0-5) /hpf Urine WBC 5 (0-5) /hpf Ur Squamous Epith Cells <1 (0-4) /hpf Amorphous Sediment Occasional H (None) /hpf Hyaline Casts 1 (0-2) /lpf Urine Mucus Rare H (None) /hpf Urine Opiates Screen Not Detected (NotDetected) Ur Oxycodone Screen Not Detected (NotDetected) Urine Methadone Screen Not Detected (NotDetected) Ur Propoxyphene Screen Not Detected (NotDetected) Ur Barbiturates Screen Not Detected (NotDetected) U Tricyclic Antidepress Not Detected (NotDetected) Ur Phencyclidine Scrn Not Detected (NotDetected) Ur Amphetamines Screen Detected H (NotDetected) U Methamphetamines Scrn Detected H (NotDetected) U Benzodiazepines Scrn Detected H (NotDetected) Urine Cocaine Screen Not Detected (NotDetected) U Marijuana (THC) Screen Not Detected (NotDetected) Serum Alcohol mg/dL - Radiology Data Radiology results: report reviewed, image reviewed Two-view x-ray of the chest is obtained. Report was reviewed in its entirety. Impression by Dr. Najera shows cardiomegaly without acute pulmonary process. Disposition Clinical Impression: Lower extremity edema, Left leg cellulitis Disposition: HOME SELF-CARE Condition: Good Instructions (If sedation given, give patient instructions): Cellulitis (ED), Leg Edema (ED) Additional Instructions: Use compression stockings. Keep legs elevated. Follow up with your primary care physician for recheck in 1-2 days. Return to the emergency department for any new, worsening, or concerning symptoms. Prescription has been sent to [facility]. Prescriptions: Cephalexin [Keflex] 500 mg PO Q6HR #40 cap Is patient prescribed a controlled substance at d/c from ED?: No Referrals: Fritz Brizuela DO [Doctor of Osteopathic Medicine] - 1-2 days Time of Disposition: 19:52
[2019-03-21 17:58] LABS: Basophils # (A) 0.1 k/uL (0-0.2); Basophils % (A) 1 %; Eosinophils # (A) 0.3 k/uL (0-0.7); Eosinophils % (A) 3 %; HCT 42.6 % (39.0-53.0); HGB 14.5 gm/dL (13.0-17.5); Lymphocytes # (A) 1.5 k/uL (1.0-4.8); Lymphocytes % (A) 13 %; MCH 31.9 pg (25.0-35.0); MCHC 34.1 g/dL (31.0-37.0); MCV 93.6 fL (80.0-100.0); Mean Platelet Volume 6.5; Monocytes # (A) 0.7 k/uL (0-1.0); Monocytes % (A) 7 %; Neutrophils # (A) 8.3 k/uL (1.3-7.7); Neutrophils % (A) 75 %; Platelet Count 371 k/uL (150-450); RBC 4.55 m/uL (4.30-5.90); RDW 12.8 % (11.5-15.5)
[2019-03-21 18:05] LABS: Partial Thromboplastin Time 26.1 sec (22.0-30.0); Prothrombin Time 10.3 sec (9.0-12.0)
--- NOTE | 2019-03-21 18:13 | XR ---
EXAMINATION TYPE: XR chest 2V DATE OF EXAM: 03/21/2019 COMPARISON: Chest x-ray October 23, 2018. HISTORY: Difficulty in breathing with bilateral leg swelling. TECHNIQUE: Frontal and lateral views of the chest are obtained. FINDINGS: Exam suboptimal due to patient's large body habitus. Somewhat low lung volumes. Overlying E KG leads redemonstrated. There is no focal air space opacity, pleural effusion, or pneumothorax seen . The cardiac silhouette size remains enlarged. The osseous structures are intact. IMPRESSION: Cardiomegaly without acute pulmonary process.
[2019-03-21 18:15] LABS: ALT 25 U/L (21-72); AST 26 U/L (17-59); African American GFR (CKD) >90 (>60 ml/min/1.73 sqM); Albumin 4.2 g/dL (3.5-5.0); Alcohol <10 mg/dL; Alkaline Phosphatase 113 U/L (38-126); Anion Gap 12 mmol/L; Blood Urea Nitrogen 12 mg/dL (9-20); Calcium 9.4 mg/dL (8.4-10.2); Carbon Dioxide 24 mmol/L (22-30); Chloride 102 mmol/L (98-107); Glucose 104 mg/dL (74-99); Magnesium 1.8 mg/dL (1.6-2.3); Potassium 3.6 mmol/L (3.5-5.1); Sodium 138 mmol/L (137-145); Total Bilirubin 0.7 mg/dL (0.2-1.3); Total Protein 7.4 g/dL (6.3-8.2)
[2019-03-21 19:20] LABS: Amorphous Sediment,Urine Occasional /hpf; Appearance,Urine Cloudy (Clear); Bilirubin,Urine Negative (Negative); Blood,Urine Trace (Negative); Color,Urine Yellow; Glucose,Urine (UA) Negative (Negative); Hyaline Casts,Urine 1 /lpf (0-2); Ketones,Urine Negative (Negative); Leukocyte Esterase,Urine Negative (Negative); Mucus,Urine Rare /hpf; Nitrite,Urine Negative (Negative); Protein,Urine Trace (Negative); RBC,Urine 4 /hpf (0-5); Squamous Epithelial Cell,Urine <1 /hpf (0-4); Urobilinogen,Urine <2.0 mg/dL (<2.0); WBC,Urine 5 /hpf (0-5)
[2019-03-21 19:36] LABS: Amphetamine Screen,Urine Detected (NotDetected); Benzodiazepines Screen,Urine Detected (NotDetected); Cocaine Screen,Urine Not Detected (NotDetected); Opiate Screen,Urine Not Detected (NotDetected); Phencyclidine Screen,Urine Not Detected (NotDetected); Urn Cannabinoid Scrn Not Detected (NotDetected)
[2019-03-21 19:37] LABS: Barbiturate Screen,Urine Not Detected (NotDetected); Methadone Screen, Urine Not Detected (NotDetected); Oxycodone Screen, Urine Not Detected (NotDetected); Tricyclic Antidepressant,Urine Not Detected (NotDetected)
[2019-03-21] MEDS ORDERED: CEPHALEXIN 500MG STARTER PACK 4 CAP BTL PO STA (19:50)
[2019-03-21] MEDS ORDERED: HYDROmorphone 1 MG/ML 1 ML SYRINGE IVP STA (19:50)
[2019-03-21 19:59] VITALS: BP 171/123; PULSE 97; RESP 14
== END 2019-03-21 20:22 | disposition home or self-care (01) ==
LOC: EC 16:02
DX: L03.116 Cellulitis of left lower limb (principal); R60.0 Localized edema; M79.604 Pain in right leg; I11.9 Hypertensive heart disease without heart failure; K21.9 Gastro-esophageal reflux disease without esophagitis; F17.200 Nicotine dependence, unspecified, uncomplicated; Z87.09 Personal history of other diseases of the respiratory system; Z79.1 Long term (current) use of non-steroidal anti-inflammatories (NSAID); Z79.899 Other long term (current) drug therapy; Z88.6 Allergy status to analgesic agent; Z88.5 Allergy status to narcotic agent
CPT/HCPCS: 99285; 96374; 96375; 36415; 93005; 83880; 80053; 83690; 83735; 84484; 85025; 85610; 85730; 81001; 80306; 71046; G0480; J1885; J1170; 80320

== ENCOUNTER → 2023-03-11 | Outpatient (CLI) | payer OTHER ==
--- NOTE | 2023-03-11 15:11 | US ---
EXAMINATION TYPE: US carotid duplex BILAT DATE OF EXAM: 03/11/2023 COMPARISON: NONE CLINICAL INDICATION: Male, 62 years old with history of I65.29 OCCLUSION AND STENOSIS; sob, light hea ded, h/o CAD TECHNIQUE: Carotid duplex ultrasound examination. Indirect Doppler criteria was utilized. FINDINGS: EXAM MEASUREMENTS: RIGHT: Peak Systolic Velocity (PSV) cm/sec ----- Right CCA: 87.3 ----- Right ICA: 93.3 ----- Right ECA: 83.9 ICA/CCA ratio: 0.96 RIGHT: End Diastole cm/sec ----- Right CCA: 25.5 ----- Right ICA: 33.3 ----- Right ECA: 12.6 LEFT: Peak Systolic Velocity (PSV) cm/sec ----- Left CCA: 68.7 ----- Left ICA: 68.2 ----- Left ECA: 105 ICA/CCA ratio: 1.5 LEFT: End Diastole cm/sec ----- Left CCA: 22.0 ----- Left ICA: 29.4 ----- Left ECA: 18.4 VERTEBRALS (direction of flow): Right Vertebral: not seen Left Vertebral: not seen Rhythm: some arrhythmia noted real time NETWORKING ENGINEER NOTES: Exam limitations due to habitus and deep dive of ICA vessels, unable to visualize either vertebral. Plaque bilaterally at bulbs, right more than left. IMPRESSION: 1. No hemodynamically significant stenosis of the bilateral internal carotid arteries. 2. Nonvisualization of both vertebral arteries likely due to patient's body habitus. Consider further evaluation with CTA head and neck if re is continued clinical concern. Criteria for Assigning % of Stenosis / Diameter reduction (Estimation based on the indirect measurements of the internal carotid artery velocities (ICA PSV). 1. Normal (no stenosis)=ICA PSV < 125 cm/s: ratio < 2.0: ICA EDV<40 cm/s. 2. Less than 50% stenosis=ICA PSV < 125 cm/s: ratio < 2.0: ICA EDV<40 cm/s. 3. 50 to 69% stenosis=ICA PSV of 125 to 230 cm/s: ration 2.0 ? 4.0: ICA EDV 40-100 cm/s. 4. Greater than 70% stenosis to near occlusion= ICA PSV > 230 cm/s: ratio > 4.0: ICA EDV > 100 cm/s. 5. Near occlusion= ICA PSV velocities may be low or undetectable: variable ratio and ICA EDV. 6. Total occlusion=unable to detect flow.
== END | disposition home or self-care (01) ==
LOC: RADUSWWP 11:04
PROVIDERS: ATTEND Family Medicine
DX: I65.29 Occlusion and stenosis of unspecified carotid artery (principal); I25.10 Atherosclerotic heart disease of native coronary artery without angina pectoris
CPT/HCPCS: 93880

== ENCOUNTER → 2023-05-26 | Outpatient (CLI) | payer OTHER ==
--- NOTE | 2023-05-26 13:10 | MR ---
EXAMINATION TYPE: MR lumbar spine wo/w con DATE OF EXAM: 05/26/2023 COMPARISON: None HISTORY: Low back pain TECHNIQUE: Multiplanar, multisequence images of the lumbar spine were acquired without and with 14 mL intravenou s Gadavist gadolinium contrast. FINDINGS: Lumbar segments are intact. No paraspinal masses are identified. Conus medullaris has a normal appe arance. Minimal multilevel disc desiccation. No abnormal contrast enhancement. L1-L2: No herniation, protrusion or disc bulging. No canal stenosis is present. Foramina are patent bilaterally. L2-L3: No herniation, protrusion or disc bulging. No canal stenosis is present. Bilateral facet arth ropathy. Foramina are patent bilaterally. L3-L4: No herniation, protrusion or disc bulging. No canal stenosis is present. Bilateral facet arth ropathy. Foramina are patent bilaterally. L4-L5: No herniation or disc protrusion. Minimal broad-based disc bulge with bilateral facet arthropa thy. No significant central canal stenosis. Mild bilateral neural foraminal stenosis. L5-S1: No herniation, protrusion or disc bulging. No canal stenosis is present. Bilateral facet arth ropathy. Foramina are patent bilaterally. IMPRESSION: 1. No disc herniation or abnormal contrast enhancement. 2. Mild degenerative disease at L4-L5 without significant central canal stenosis. Bilateral facet art hropathy with mild bilateral neuroforaminal stenosis at this level.
== END | disposition home or self-care (01) ==
LOC: RADMRIMAIN 11:22
PROVIDERS: ATTEND Family Medicine
DX: M51.36 Other intervertebral disc degeneration, lumbar region (principal); M47.816 Spondylosis without myelopathy or radiculopathy, lumbar region; M99.73 Connective tissue and disc stenosis of intervertebral foramina of lumbar region
CPT/HCPCS: 72158